=== PATIENT | male | born 1970 | race Caucasian/White ===

== ENCOUNTER → 2017-07-19 | Outpatient (CLI) | payer MEDICAID ==
[2017-07-19 11:20] LABS: Appearance,Urine Clear (Clear); Basophils # (A) 0.1 k/uL (0-0.2); Basophils % (A) 1 %; Bilirubin,Urine Negative (Negative); Blood,Urine Negative (Negative); Color,Urine Yellow; Eosinophils # (A) 0.4 k/uL (0-0.7); Eosinophils % (A) 7 %; Glucose,Urine (UA) Negative (Negative); HCT 44.9 % (39.0-53.0); HGB 15.6 gm/dL (13.0-17.5); Ketones,Urine Negative (Negative); Leukocyte Esterase,Urine Negative (Negative); Lymphocytes # (A) 1.6 k/uL (1.0-4.8); Lymphocytes % (A) 25 %; MCH 30.3 pg (25.0-35.0); MCHC 34.8 g/dL (31.0-37.0); Mean Platelet Volume 6.3; Monocytes # (A) 0.5 k/uL (0-1.0); Monocytes % (A) 8 %; Neutrophils # (A) 3.6 k/uL (1.3-7.7); Neutrophils % (A) 57 %; Nitrite,Urine Negative (Negative); PH, Urine 7.5 (5.0-8.0); Platelet Count 267 k/uL (150-450); Protein,Urine Negative (Negative); RBC 5.16 m/uL (4.30-5.90); RDW 14.1 % (11.5-15.5); Specific Gravity,Urine 1.014 (1.001-1.035); Urobilinogen,Urine <2.0 mg/dL (<2.0); WBC 6.3 k/uL (3.8-10.6)
[2017-07-19 11:32] LABS: ALT 65 U/L (21-72); AST 32 U/L (17-59); Albumin 4.4 g/dL (3.5-5.0); Alkaline Phosphatase 61 U/L (38-126); Anion Gap 13 mmol/L; Blood Urea Nitrogen 14 mg/dL (9-20); Calcium 9.6 mg/dL (8.4-10.2); Carbon Dioxide 24 mmol/L (22-30); Chloride 105 mmol/L (98-107); Cholesterol 216 mg/dL (<200); Creatine Kinase 88 U/L (55-170); Glucose 89 mg/dL (74-99); HDL Cholesterol 51 mg/dL (40-60); LDL Cholesterol,Calculated 140 mg/dL (0-99); Potassium 4.8 mmol/L (3.5-5.1); Sodium 142 mmol/L (137-145); Total Bilirubin 0.7 mg/dL (0.2-1.3); Total Protein 6.7 g/dL (6.3-8.2); Triglycerides 125 mg/dL (<150)
[2017-07-19 11:47] LABS: T4, Free (Free Thyroxine) 1.07 ng/dL (0.78-2.19)
[2017-07-19 12:00] LABS: Prostate Specific Antigen 0.75 ng/mL (0.00-4.00)
[2017-07-19 19:03] LABS: Hemoglobin A1C 5.7 % (4.0-6.0)
== END | disposition home or self-care (01) ==
LOC: LABWHC1 10:22
PROVIDERS: ATTEND Internal Medicine
DX: E55.9 Vitamin D deficiency, unspecified (principal); K21.0 Gastro-esophageal reflux disease with esophagitis; R10.13 Epigastric pain; J45.909 Unspecified asthma, uncomplicated; N40.0 Benign prostatic hyperplasia without lower urinary tract symptoms; R00.1 Bradycardia, unspecified
CPT/HCPCS: 36415; 80053; 80061; 81003; 82306; 82550; 83036; 84153; 84439; 84443; 85025

== ENCOUNTER 2017-09-20 14:58 | Inpatient (IN) | payer MEDICAID ==
[2017-09-20] MEDS ORDERED: SODIUM CHLORIDE 0.9% 500 ML IV STA (14:59)
[2017-09-20] MEDS ORDERED: HYDROmorphone 1 MG/ML 1 ML SYRINGE IVP STA ×2 (14:59→15:45)
[2017-09-20] MEDS ORDERED: KETOROLAC 30 MG/ML 1 ML VIAL IVP STA (14:59)
[2017-09-20] MEDS ORDERED: ONDANSETRON 4 MG/2 ML VIAL IVP STA (14:59)
--- NOTE | 2017-09-20 15:05 | ED ---
General Adult HPI - General Stated complaint: ABDOMINAL PAIN Time Seen by Provider: 09/20/17 15:00 Source: RN notes reviewed - History of Present Illness Initial comments: This is a 47-year-old male who presents emergency Department complaining of sudden onset of right flank pain. Patient states he was at work and the pain came on extremely strong and he thought he was going to vomit but he has not yet. Patient states he is becoming lightheaded and feels as though he might pass out. Patient states he believes is all secondary to the severe pain. Patient denies any chest pain difficulty breathing shortness of breath. Patient denies any recent fever chills. Patient denies any hematuria urinary frequency. - Related Data Home Medications Medication Instructions Recorded Confirmed Atorvastatin [Lipitor] 20 mg PO HS 09/20/17 09/20/17 Cholecalciferol [Vitamin D3] 1,000 unit PO DAILY 09/20/17 09/20/17 Mometasone Furoate [Nasonex Nasal 1 spr EA NOSTRIL BID 09/20/17 09/20/17 Carey] Allergies Allergy/AdvReac Type Severity Reaction Status Date / Time No Known Allergies Allergy Verified 09/20/17 15:22 Review of Systems ROS Statement: Those systems with pertinent positive or pertinent negative responses have been documented in the HPI. ROS Other: All systems not noted in ROS Statement are negative. Past Medical History Past Medical History: Asthma Additional Past Medical History / Comment(s): sinus problems History of Any Multi-Drug Resistant Organisms: None Reported Past Surgical History: Hernia Repair Additional Past Surgical History / Comment(s): sinus surgery Past Anesthesia/Blood Transfusion Reactions: No Reported Reaction Past Psychological History: No Psychological Hx Reported Smoking Status: Never smoker Past Alcohol Use History: Occasional Past Drug Use History: None Reported - Past Family History Brother(s) Family Medical History: Cancer General Exam - General Exam Comments Initial Comments: GENERAL: Patient is well-developed and well-nourished. Patient is nontoxic and well- hydrated and is in moderate to severe distress. ENT: Neck is soft and supple. No significant lymphadenopathy is noted. Oropharynx is clear. Moist mucous membranes. Neck has full range of motion without eliciting any pain. EYES: The sclera were anicteric and conjunctiva were pink and moist. Extraocular movements were intact and pupils were equal round and reactive to light. Eyelids were unremarkable. PULMONARY: Unlabored respirations. Good breath sounds bilaterally. No audible rales rhonchi or wheezing was noted. CARDIOVASCULAR: There is a regular rate and rhythm without any murmurs gallops or rubs. ABDOMEN: Soft and nontender with normal bowel sounds. No palpable organomegaly was noted. There is no palpable pulsatile mass. SKIN: Skin is clear with no lesions or rashes and otherwise unremarkable. NEUROLOGIC: Patient is alert and oriented x3. Cranial nerves II through XII are grossly intact. Motor and sensory are also intact. Normal speech, volume and content. Symmetrical smile. MUSCULOSKELETAL: Normal extremities with adequate strength and full range of motion. LYMPHATICS: No significant lymphadenopathy is noted PSYCHIATRIC: Normal psychiatric evaluation. Course Vital Signs 09/20/17 09/20/17 15:06 17:12 Temperature 97.2 F L 98.1 F Pulse Rate 71 77 Respiratory 24 18 Rate Blood Pressure 134/81 126/75 O2 Sat by Pulse 100 99 Oximetry Medical Decision Making - Medical Decision Making CT shows an edematous small bowel with some distention. I spoke with Dr. Aceves. Dr. Aceves came down and saw the patient emerges. Wanted patient admitted. - Lab Data Result diagrams: 09/20/17 15:03 09/20/17 15:03 Lab Results 09/20/17 09/20/17 09/20/17 Range/Units 15:03 15:03 15:03 WBC 10.0 (3.8-10.6) k/uL RBC 5.30 (4.30-5.90) m/uL Hgb 15.1 (13.0-17.5) gm/dL Hct 45.5 (39.0-53.0) % MCV 85.8 (80.0-100.0) fL MCH 28.4 (25.0-35.0) pg MCHC 33.1 (31.0-37.0) g/dL RDW 13.4 (11.5-15.5) % Plt Count 362 (150-450) k/uL Neutrophils % 55 % Lymphocytes % 32 % Monocytes % 7 % Eosinophils % 2 % Basophils % 1 % Neutrophils # 5.4 (1.3-7.7) k/uL Lymphocytes # 3.2 (1.0-4.8) k/uL Monocytes # 0.7 (0-1.0) k/uL Eosinophils # 0.2 (0-0.7) k/uL Basophils # 0.1 (0-0.2) k/uL ESR (0-15) mm/hr Sodium 140 (137-145) mmol/L Potassium 3.7 (3.5-5.1) mmol/L Chloride 103 (98-107) mmol/L Carbon Dioxide 26 (22-30) mmol/L Anion Gap 11 mmol/L BUN 18 (9-20) mg/dL Creatinine 0.91 (0.66-1.25) mg/dL Est GFR (CKD-EPI)AfAm >90 (>60 ml/min/1.73 sqM) Est GFR (CKD-EPI)NonAf >90 (>60 ml/min/1.73 sqM) Glucose 99 (74-99) mg/dL Plasma Lactic Acid Gurmeet (0.7-2.0) mmol/L Calcium 9.6 (8.4-10.2) mg/dL Total Bilirubin 0.8 (0.2-1.3) mg/dL AST 32 (17-59) U/L ALT 56 (21-72) U/L Alkaline Phosphatase 57 (38-126) U/L C-Reactive Protein <5.0 (<10.0) mg/L Total Protein 6.5 (6.3-8.2) g/dL Albumin 4.5 (3.5-5.0) g/dL Amylase 93 (30-110) U/L Lipase 869 H (23-300) U/L 09/20/17 09/20/17 Range/Units 15:03 16:09 WBC (3.8-10.6) k/uL RBC (4.30-5.90) m/uL Hgb (13.0-17.5) gm/dL Hct (39.0-53.0) % MCV (80.0-100.0) fL MCH (25.0-35.0) pg MCHC (31.0-37.0) g/dL RDW (11.5-15.5) % Plt Count (150-450) k/uL Neutrophils % % Lymphocytes % % Monocytes % % Eosinophils % % Basophils % % Neutrophils # (1.3-7.7) k/uL Lymphocytes # (1.0-4.8) k/uL Monocytes # (0-1.0) k/uL Eosinophils # (0-0.7) k/uL Basophils # (0-0.2) k/uL ESR 2 (0-15) mm/hr Sodium (137-145) mmol/L Potassium (3.5-5.1) mmol/L Chloride (98-107) mmol/L Carbon Dioxide (22-30) mmol/L Anion Gap mmol/L BUN (9-20) mg/dL Creatinine (0.66-1.25) mg/dL Est GFR (CKD-EPI)AfAm (>60 ml/min/1.73 sqM) Est GFR (CKD-EPI)NonAf (>60 ml/min/1.73 sqM) Glucose (74-99) mg/dL Plasma Lactic Acid Gurmeet 1.6 (0.7-2.0) mmol/L Calcium (8.4-10.2) mg/dL Total Bilirubin (0.2-1.3) mg/dL AST (17-59) U/L ALT (21-72) U/L Alkaline Phosphatase (38-126) U/L C-Reactive Protein (<10.0) mg/L Total Protein (6.3-8.2) g/dL Albumin (3.5-5.0) g/dL Amylase (30-110) U/L Lipase (23-300) U/L Disposition Clinical Impression: Small bowel edema, Abdominal pain Disposition: ADMITTED IP TO THIS [facility] Referrals: Jigar Basilio MD [Primary Care Provider] - 1-2 days Time of Disposition: 17:56
[2017-09-20 15:15] LABS: Basophils # (A) 0.1 k/uL (0-0.2); Basophils % (A) 1 %; Eosinophils # (A) 0.2 k/uL (0-0.7); Eosinophils % (A) 2 %; HCT 45.5 % (39.0-53.0); HGB 15.1 gm/dL (13.0-17.5); Lymphocytes # (A) 3.2 k/uL (1.0-4.8); Lymphocytes % (A) 32 %; MCH 28.4 pg (25.0-35.0); MCHC 33.1 g/dL (31.0-37.0); MCV 85.8 fL (80.0-100.0); Mean Platelet Volume 6.4; Monocytes # (A) 0.7 k/uL (0-1.0); Monocytes % (A) 7 %; Neutrophils # (A) 5.4 k/uL (1.3-7.7); Neutrophils % (A) 55 %; Platelet Count 362 k/uL (150-450); RDW 13.4 % (11.5-15.5)
[2017-09-20] MEDS ORDERED: SODIUM CHLORIDE 0.9% 1,000 ML IV STA (15:16)
[2017-09-20 15:24] LABS: ALT 56 U/L (21-72); AST 32 U/L (17-59); Albumin 4.5 g/dL (3.5-5.0); Alkaline Phosphatase 57 U/L (38-126); Amylase 93 U/L (30-110); Anion Gap 11 mmol/L; Blood Urea Nitrogen 18 mg/dL (9-20); Calcium 9.6 mg/dL (8.4-10.2); Carbon Dioxide 26 mmol/L (22-30); Chloride 103 mmol/L (98-107); Glucose 99 mg/dL (74-99); Lipase 869 U/L (23-300); Potassium 3.7 mmol/L (3.5-5.1); Sodium 140 mmol/L (137-145); Total Bilirubin 0.8 mg/dL (0.2-1.3); Total Protein 6.5 g/dL (6.3-8.2)
--- NOTE | 2017-09-20 15:36 | XR ---
EXAMINATION TYPE: XR KUB DATE OF EXAM: 09/20/2017 COMPARISON: NONE HISTORY: Abdominal pain TECHNIQUE: One view abdominal series FINDINGS: The osseous structures are intact. The bowel gas pattern is nonspecific. Lung bases are clear. IMPRESSION: 1. Nonspecific abdomen.
--- NOTE | 2017-09-20 16:05 | CT ---
EXAMINATION TYPE: CT abdomen pelvis wo con DATE OF EXAM: 09/20/2017 COMPARISON: 07/22/2013 HISTORY: 47-year-old male Generalized abdominal pain with nausea. CT DLP: 471.4 mGycm. Automated exposure control for dose reduction was used. TECHNIQUE: Contiguous axial scanning of the abdomen and pelvis without IV contrast. Coronal and sagit joycelyn reconstructions performed. FINDINGS: Heart normal size without pericardial effusion. Lung bases clear without pleural effusion. Small hiatal hernia. Noncontrast appearance of the liver, gallbladder, adrenal glands, kidneys, spleen and pancreas shows no gross abnormal mobility. Diffuse dilated small bowel loops are present measuring up to 3.2 cm. These appear edematous with mil d mesenteric edema and are fluid-filled. Some of the distalmost small bowel loops in the pelvis are c ollapsed. There is mild stool and air seen throughout the colon extending distally into the rectum. A ppendix is normal. No mesenteric or retroperitoneal lymphadenopathy. Ill-defined appearance to the celiac axis incidentally noted, axial image 22 and coronal image 37. Mild to moderate circumferential bladder wall thickening. Prostate gland mildly enlarged at 4.5 cm. N o abnormal fluid collection in the pelvis or pelvic lymphadenopathy. Bones: No osseous destructive process. IMPRESSION: 1. Diffuse dilated and mildly edematous small bowel loops measuring up to 3.2 cm filled with fluid. There is some mild mesenteric edema as well. Some of the distalmost small bowel loops are collapsed. Correlate for possible early small bowel obstruction. 2. Ill-defined appearance to the celiac axis. While this may be artifactual, it can also be seen in the setting of a medium vessel vasculitis. Clinically correlate. 3. Mild to moderate circumferential bladder wall thickening could represent chronic bladder wall hyp ertrophy or cystitis.
[2017-09-20] MEDS ORDERED: MORPHINE SULFATE 2 MG/ML SYRINGE IVP STA (16:08)
--- NOTE | 2017-09-20 16:58 | CT ---
EXAMINATION TYPE: CT abdomen pelvis w con DATE OF EXAM: 09/20/2017 COMPARISON: Noncontrast study earlier today HISTORY: 43-year-old male with generalized abdominal pain. TECHNIQUE: Contiguous axial scanning of the abdomen and pelvis following administration of 100 ml Iso atilio 300 IV contrast. Delayed images through the kidneys and coronal/sagittal reconstructions perform ed. CT DLP: 624.3 mGycm Automated exposure control for dose reduction was used. FINDINGS: Persistent fluid-filled and borderline to mildly dilated small bowel loops throughout the abdomen radha suring up to 3.0 cm. There is persistent diminished change of the small bowel loops with mild mesente vin edema and now needle mild perihepatic and perisplenic ascites. New small amount of pelvic free fl uid also noted. There is interval decompression of the transverse colon and distal small bowel in the right lower oni drant and pelvis remain collapsed. There is equalization of some small bowel loops in the pelvis but no well-defined transition point seen. No mesenteric or retroperitoneal lymphadenopathy. The visceral arteries appear grossly patent without any significant abnormality as questioned on the study earlier today. No abnormal distention of the gallbladder. Appendix is normal. Symmetric uptake and excretion of cont rast from the kidneys. IMPRESSION: 1. PERSISTENT EDEMATOUS AND BORDERLINE TO MILDLY DILATED FLUID-FILLED SMALL BOWEL LOOPS MEASURING UP TO 3.0 CM. THERE IS INTERVAL DECOMPRESSION OF THE TRANSVERSE COLON. DISTAL SMALL BOWEL REMAINS COLLAP SED AND NOW THERE IS SOME FECALIZATION OF SMALL BOWEL LOOPS IN THE PELVIS. DISTAL SMALL BOWEL OBSTRUC TION NOT EXCLUDED. 2. NEW PERIHEPATIC AND PERISPLENIC ASCITES REACTIVE TO THE SMALL BOWEL ABNORMALITY. NO FREE AIR. 3. THE VISCERAL ARTERIES AND PORTAL VENOUS SYSTEM APPEAR GROSSLY UNREMARKABLE.
[2017-09-20] MEDS ORDERED: SODIUM CHLORIDE 0.9% 1,000 ML IV ONE (17:56)
[2017-09-20] MEDS ORDERED: ONDANSETRON 4 MG/2 ML VIAL IVP PRN (18:06)
[2017-09-20] MEDS ORDERED: HYDROmorphone 1 MG/ML 1 ML SYRINGE IVP PRN (18:06)
--- NOTE | 2017-09-20 18:16 | P.GSHP ---
History of Present Illness H&P Date: 09/20/17 Chief Complaint: Abdominal pain Patient was working today when he began experiencing acute onset severe diffuse abdominal pain. Patient went himself down to the emergency department for evaluation. Patient had basic lab work which was normal including CBC lactic acid and amylase however his lipase was elevated. He had a CAT scan without contrast which did not show any definite abnormalities and was then sent back to the CAT scan suite for a contrast study. The films have been reviewed with radiology. There were actually compared to a 2014 contrast study as well. Between the 2 CAT scans the patient developed some free fluid in the upper abdomen. There is some edema of the mesentery. There is no evidence of mesenteric volvulus. There may be some degree of partial small bowel obstruction on films. Patient had a previous inguinal hernia repair and a previous left ureteral surgery through a left lower quadrant incision. Patient' s pain has improved after he was given IV narcotics in the ER. His pain was in excess of 10 out of 10 initially but now is 4 out of 10 and appears relatively comfortable even according to the family. He was seen by cardiovascular surgery earlier who also reviewed his films. Patient is normal sinus rhythm. No hypotension. - Review of Systems Comment: The patient denies any acute changes in vision or hearing, no dysphagia or odynophagia, no chest pain or shortness of breath, no dysuria or hematuria, no headache, no runny nose, no rectal bleeding or melena, no unexplained weight loss Past Medical History Past Medical History: Asthma Additional Past Medical History / Comment(s): sinus problems History of Any Multi-Drug Resistant Organisms: None Reported Past Surgical History: Hernia Repair Additional Past Surgical History / Comment(s): sinus surgery Past Anesthesia/Blood Transfusion Reactions: No Reported Reaction Past Psychological History: No Psychological Hx Reported Smoking Status: Never smoker Past Alcohol Use History: Occasional Past Drug Use History: None Reported - Past Family History Brother(s) Family Medical History: Cancer Medications and Allergies Home Medications Medication Instructions Recorded Confirmed Type Atorvastatin [Lipitor] 20 mg PO HS 09/20/17 09/20/17 History Cholecalciferol [Vitamin D3] 1,000 unit PO DAILY 09/20/17 09/20/17 History Mometasone Furoate [Nasonex Nasal 1 spr EA NOSTRIL BID 09/20/17 09/20/17 History Hanna] Allergies Allergy/AdvReac Type Severity Reaction Status Date / Time No Known Allergies Allergy Verified 09/20/17 15:22 Surgical - Exam Vital Signs Temp Pulse Resp BP Pulse Ox 97.2 F L 71 24 134/81 100 09/20/17 15:06 09/20/17 15:06 09/20/17 15:06 09/20/17 15:06 09/20/17 15:06 Physical exam: General: Well-developed, well-nourished HEENT: Normocephalic, sclerae nonicteric Abdomen: Mild right lower quadrant tenderness, no rebound, no guarding, nondistended Extremities: No edema Neuro: Alert and oriented Results - Labs 09/20/17 15:03 09/20/17 15:03 Abnormal Lab Results - Last 24 Hours (Table) 09/20/17 Range/Units 15: Lipase 869 H (23-300) U/L Diabetes panel 09/20/17 Range/Units 15:03 Sodium 140 (137-145) mmol/L Potassium 3.7 (3.5-5.1) mmol/L Chloride 103 (98-107) mmol/L Carbon Dioxide 26 (22-30) mmol/L BUN 18 (9-20) mg/dL Creatinine 0.91 (0.66-1.25) mg/dL Glucose 99 (74-99) mg/dL Calcium 9.6 (8.4-10.2) mg/dL AST 32 (17-59) U/L ALT 56 (21-72) U/L Alkaline Phosphatase 57 (38-126) U/L Total Protein 6.5 (6.3-8.2) g/dL Albumin 4.5 (3.5-5.0) g/dL Calcium panel 09/20/17 Range/Units 15:03 Calcium 9.6 (8.4-10.2) mg/dL Albumin 4.5 (3.5-5.0) g/dL Pituitary panel 09/20/17 Range/Units 15:03 Sodium 140 (137-145) mmol/L Potassium 3.7 (3.5-5.1) mmol/L Chloride 103 (98-107) mmol/L Carbon Dioxide 26 (22-30) mmol/L BUN 18 (9-20) mg/dL Creatinine 0.91 (0.66-1.25) mg/dL Glucose 99 (74-99) mg/dL Calcium 9.6 (8.4-10.2) mg/dL Adrenal panel 09/20/17 Range/Units 15:03 Sodium 140 (137-145) mmol/L Potassium 3.7 (3.5-5.1) mmol/L Chloride 103 (98-107) mmol/L Carbon Dioxide 26 (22-30) mmol/L BUN 18 (9-20) mg/dL Creatinine 0.91 (0.66-1.25) mg/dL Glucose 99 (74-99) mg/dL Calcium 9.6 (8.4-10.2) mg/dL Total Bilirubin 0.8 (0.2-1.3) mg/dL AST 32 (17-59) U/L ALT 56 (21-72) U/L Alkaline Phosphatase 57 (38-126) U/L Total Protein 6.5 (6.3-8.2) g/dL Albumin 4.5 (3.5-5.0) g/dL Assessment and Plan (1) Abdominal pain Narrative/Plan: Patient with acute onset abdominal pain and CAT scan findings suggesting some degree of enteritis. The history suggests a possible episode of mesenteric ischemia although the patient has responded well to IV hydration and IV analgesics. Clinical history and findings discussed in detail with the patient and his . Given his improvement we'll plan close observation. Repeat labs will be ordered for 9 PM. If the patient's pain increases would consider diagnostic laparoscopy. Case was also reviewed with cardiovascular surgery. Current Visit: Yes Status: Acute Code(s): R10.9 - UNSPECIFIED ABDOMINAL PAIN SNOMED Code(s): 18272858
[2017-09-20] MEDS ORDERED: MORPHINE SULFATE 2 MG/ML SYRINGE IVP PRN (19:09)
[2017-09-20] MEDS ORDERED: ACETAMINOPHEN IV (For NPO) 1,000 MG in EMPTY BAG 1 BAG IVPB STA (19:09)
[2017-09-20 21:15] LABS: Appearance,Urine Clear (Clear); Bilirubin,Urine Negative (Negative); Blood,Urine Negative (Negative); Color,Urine Yellow; Glucose,Urine (UA) Negative (Negative); Ketones,Urine 2+ (Negative); Leukocyte Esterase,Urine Negative (Negative); Nitrite,Urine Negative (Negative); Protein,Urine Trace (Negative); Urobilinogen,Urine <2.0 mg/dL (<2.0)
[2017-09-20 21:56] LABS: Basophils # (A) 0.1 k/uL (0-0.2); Basophils % (A) 1 %; Eosinophils # (A) 0.3 k/uL (0-0.7); Eosinophils % (A) 4 %; HCT 44.3 % (39.0-53.0); HGB 14.6 gm/dL (13.0-17.5); Lymphocytes # (A) 1.4 k/uL (1.0-4.8); Lymphocytes % (A) 15 %; MCH 28.5 pg (25.0-35.0); MCV 86.3 fL (80.0-100.0); Mean Platelet Volume 6.5; Monocytes # (A) 0.5 k/uL (0-1.0); Monocytes % (A) 5 %; Neutrophils # (A) 7.1 k/uL (1.3-7.7); Neutrophils % (A) 75 %; Platelet Count 291 k/uL (150-450); RBC 5.14 m/uL (4.30-5.90); RDW 13.3 % (11.5-15.5); WBC 9.4 k/uL (3.8-10.6)
[2017-09-20 22:05] LABS: Amylase 96 U/L (30-110); Anion Gap 8 mmol/L; Blood Urea Nitrogen 16 mg/dL (9-20); Calcium 8.9 mg/dL (8.4-10.2); Carbon Dioxide 25 mmol/L (22-30); Chloride 106 mmol/L (98-107); Glucose 86 mg/dL (74-99); Lipase 459 U/L (23-300); Potassium 4.3 mmol/L (3.5-5.1); Sodium 139 mmol/L (137-145)
[2017-09-20] MEDS: KETOROLAC 30 MG/ML 1 ML VIAL IVP PRN (22:05)
[2017-09-20] MEDS: HEPARIN SODIUM,PORCINE 5,000 UNIT/ML 1 ML VIAL SQ SCH (22:06)
[2017-09-20] MEDS: FAMOTIDINE 20 MG/2 ML VIAL IV SCH (22:06)
[2017-09-21] MEDS: ACETAMINOPHEN IV (For NPO) 1,000 MG in EMPTY BAG 1 BAG IVPB PRN ×3 (01:55→14:40)
[2017-09-21] MEDS: SODIUM CHLORIDE 0.9% 1,000 ML IV SCH ×4 (04:21→20:56)
[2017-09-21] MEDS: KETOROLAC 30 MG/ML 1 ML VIAL IVP PRN ×3 (04:21→17:04)
[2017-09-21] MEDS: HEPARIN SODIUM,PORCINE 5,000 UNIT/ML 1 ML VIAL SQ SCH ×3 (08:33→23:21)
[2017-09-21 08:42] LABS: Basophils % (A) 1 %; Eosinophils # (A) 0.5 k/uL (0-0.7); Eosinophils % (A) 9 %; HCT 41.4 % (39.0-53.0); HGB 13.8 gm/dL (13.0-17.5); Lymphocytes # (A) 1.3 k/uL (1.0-4.8); Lymphocytes % (A) 25 %; MCH 28.9 pg (25.0-35.0); MCHC 33.4 g/dL (31.0-37.0); MCV 86.4 fL (80.0-100.0); Mean Platelet Volume 6.3; Monocytes # (A) 0.4 k/uL (0-1.0); Monocytes % (A) 7 %; Neutrophils # (A) 2.9 k/uL (1.3-7.7); Neutrophils % (A) 56 %; Platelet Count 291 k/uL (150-450); RDW 13.3 % (11.5-15.5); WBC 5.1 k/uL (3.8-10.6)
[2017-09-21 08:52] LABS: ALT 46 U/L (21-72); AST 24 U/L (17-59); Albumin 3.5 g/dL (3.5-5.0); Alkaline Phosphatase 49 U/L (38-126); Anion Gap 5 mmol/L; Blood Urea Nitrogen 11 mg/dL (9-20); Calcium 8.7 mg/dL (8.4-10.2); Carbon Dioxide 25 mmol/L (22-30); Chloride 109 mmol/L (98-107); Glucose 83 mg/dL (74-99); Potassium 4.5 mmol/L (3.5-5.1); Sodium 139 mmol/L (137-145); Total Protein 5.3 g/dL (6.3-8.2)
[2017-09-21] MEDS: FAMOTIDINE 20 MG/2 ML VIAL IV SCH ×2 (08:52→19:48)
--- NOTE | 2017-09-21 12:13 | P.GSCN ---
History of Present Illness Consult date: 09/21/17 Reason for Consult: Abdominal pain possible mesenteric ischemia Requesting physician: Kirt Aceves History of present illness: Patient was working yesterday when he began experiencing acute onset severe abdominal pain located at the right lower quadrant and right upper quadrant under his rib cage. Patient walked himself down to the emergency department for evaluation where he had lab work and CT scans which showed some edema of the mesentery. Patient was seen by general surgery and upon evaluation and history there was a question to him having had a bout of mesenteric ischemia. Patient's pain has since improved after he was given IV narcotics in the ER as well as hydration. His pain currently is nagging and measured at 4/10. He denies any f/c/cp/sob/n or vomiting. He did have recent hospitalization in [place] for generalized weakness and malaise which he underwent ECHO that was normal. Review of Systems - Constitutional Reports malaise - EENT Ears, nose, mouth and throat: Denies ant. neck pain, Denies bleeding gums, Denies dysphagia, Denies headache - Cardiovascular Denies chest pain, Denies claudication, Denies decreased exercise tolerance, Denies dyspnea on exertion - Respiratory Denies congestion, Denies cough, Denies cough with sputum, Denies dyspnea - Gastrointestinal Reports abdominal pain, Denies belching, Denies bloating, Denies change in bowel habits, Denies coffee ground emesis - Genitourinary Reports flank pain, Denies decreased libido, Denies dysuria, Denies genital pain - Musculoskeletal Reports as per HPI - Integumentary Reports as per HPI - Neurological Denies aphasia, Denies balance difficulties, Denies burning pain, Denies change in mentation, Denies change in speech, Denies double vision, Denies paresthesias - Psychiatric Denies anxiety, Denies anxiety attacks - Endocrine Reports as per HPI - Hematologic/Lymphatic Denies easy bleeding, Denies easy bruising, Denies lymphadenopathy - Allergic/Immunologic Reports as per HPI Past Medical History Past Medical History: Asthma, Hyperlipidemia Additional Past Medical History / Comment(s): sinus problems, recent diagnosis of hyperlipidemia History of Any Multi-Drug Resistant Organisms: None Reported Past Surgical History: Hernia Repair Additional Past Surgical History / Comment(s): sinus surgery Past Anesthesia/Blood Transfusion Reactions: No Reported Reaction Additional Past Anesthesia/Blood Transfusion Reaction / Comm: Pt. reports that he has never had a blood transfusion. Past Psychological History: No Psychological Hx Reported Smoking Status: Never smoker Past Alcohol Use History: Occasional Past Drug Use History: None Reported - Past Family History Brother(s) Family Medical History: Asthma, Cancer Additional Family Medical History / Comment(s): Skin Cancer Father Family Medical History: AFIB, Cancer, Diabetes Mellitus, Hyperlipidemia, Hypertension Additional Family Medical History / Comment(s): Prostate Cancer Mother Additional Family Medical History / Comment(s): Arthritis with knee replacement Medications and Allergies Home Medications Medication Instructions Recorded Confirmed Type Atorvastatin [Lipitor] 20 mg PO HS 09/20/17 09/20/17 History Cholecalciferol [Vitamin D3] 1,000 unit PO DAILY 09/20/17 09/20/17 History Mometasone Furoate [Nasonex Nasal 1 spr EA NOSTRIL BID 09/20/17 09/20/17 History Kenedy] Allergies Allergy/AdvReac Type Severity Reaction Status Date / Time No Known Allergies Allergy Verified 09/20/17 15:22 Surgical - Exam Vital Signs Temp Pulse Resp BP Pulse Ox 97.2 F L 71 24 134/81 100 09/20/17 15:06 09/20/17 15:06 09/20/17 15:06 09/20/17 15:06 09/20/17 15:06 - General well developed, well nourished, no distress - Eyes PERRL, normal ocular movement - ENT normal pinna, normal nares - Neck no masses, trachea midline - Respiratory normal expansion, normal respiratory effort - Cardiovascular Rhythm: regular - Abdomen Abdomen: soft, tender, no masses, no guarding, rebound, no distended Hernia: none - Neurologic normal coordination, normal sensation, no disoriented - Psychiatric oriented to time, oriented to person, oriented to place, speech is normal Results - Labs 09/21/17 08:20 09/21/17 08:20 Abnormal Lab Results - Last 24 Hours (Table) 09/20/17 09/20/17 09/20/17 Range/Units 15:03 21:00 21:40 Chloride (98-107) mmol/L Plasma Lactic Acid Gurmeet (0.7-2.0) mmol/L Total Protein (6.3-8.2) g/dL Lipase 869 H 459 H (23-300) U/L Ur Specific Gilchrist 1.050 H (1.001-1.035) Urine Protein Trace H (Negative) Urine Ketones 2+ H (Negative) 09/20/17 09/21/17 Range/Units 21:40 08:20 Chloride 109 H (98-107) mmol/L Plasma Lactic Acid Gurmeet 0.5 L (0.7-2.0) mmol/L Total Protein 5.3 L (6.3-8.2) g/dL Lipase (23-300) U/L Ur Specific Gilchrist (1.001-1.035) Urine Protein (Negative) Urine Ketones (Negative) Diabetes panel 09/20/17 09/20/17 09/21/17 Range/Units 15:03 21:40 08:20 Sodium 140 139 139 (137-145) mmol/L Potassium 3.7 4.3 4.5 (3.5-5.1) mmol/L Chloride 103 106 109 H (98-107) mmol/L Carbon Dioxide 26 25 25 (22-30) mmol/L BUN 18 16 11 (9-20) mg/dL Creatinine 0.91 0.80 0.83 (0.66-1.25) mg/dL Glucose 99 86 83 (74-99) mg/dL Calcium 9.6 8.9 8.7 (8.4-10.2) mg/dL AST 32 24 (17-59) U/L ALT 56 46 (21-72) U/L Alkaline Phosphatase 57 49 (38-126) U/L Total Protein 6.5 5.3 L (6.3-8.2) g/dL Albumin 4.5 3.5 (3.5-5.0) g/dL Calcium panel 09/20/17 09/20/17 09/21/17 Range/Units 15:03 21:40 08:20 Calcium 9.6 8.9 8.7 (8.4-10.2) mg/dL Albumin 4.5 3.5 (3.5-5.0) g/dL Pituitary panel 09/20/17 09/20/17 09/21/17 Range/Units 15:03 21:40 08:20 Sodium 140 139 139 (137-145) mmol/L Potassium 3.7 4.3 4.5 (3.5-5.1) mmol/L Chloride 103 106 109 H (98-107) mmol/L Carbon Dioxide 26 25 25 (22-30) mmol/L BUN 18 16 11 (9-20) mg/dL Creatinine 0.91 0.80 0.83 (0.66-1.25) mg/dL Glucose 99 86 83 (74-99) mg/dL Calcium 9.6 8.9 8.7 (8.4-10.2) mg/dL Adrenal panel 09/20/17 09/20/17 09/21/17 Range/Units 15:03 21:40 08:20 Sodium 140 139 139 (137-145) mmol/L Potassium 3.7 4.3 4.5 (3.5-5.1) mmol/L Chloride 103 106 109 H (98-107) mmol/L Carbon Dioxide 26 25 25 (22-30) mmol/L BUN 18 16 11 (9-20) mg/dL Creatinine 0.91 0.80 0.83 (0.66-1.25) mg/dL Glucose 99 86 83 (74-99) mg/dL Calcium 9.6 8.9 8.7 (8.4-10.2) mg/dL Total Bilirubin 0.8 1.0 (0.2-1.3) mg/dL AST 32 24 (17-59) U/L ALT 56 46 (21-72) U/L Alkaline Phosphatase 57 49 (38-126) U/L Total Protein 6.5 5.3 L (6.3-8.2) g/dL Albumin 4.5 3.5 (3.5-5.0) g/dL - Imaging CT scan - abdomen: report reviewed, image reviewed (mesenteric edema noted without evidence of vascular disease or occlusion) Assessment and Plan Assessment: Acute Abdominal pain of unknown etiology No evidence of mesenteric ischemia Acute pancreatitis Plan: I reviewed CAT scans and do not see evidence of vascular disease within the mesenteric vasculature. Continue with IV hydration and monitor labs and abdominal exam. If patient gets worse or labs become abnormal then may need formal angiogram to fully workup mesenteric ischemia. We discussed possible causes of pain from embolic ischemia vs spasm which are unlikely secondary to his lack of laboratory changes. No vascular surgical intervention at this time. Thank you for allowing me to participate in your patients care. Time with Patient: Greater than 30
[2017-09-21] MEDS ORDERED: HYDROcodone/APAP 5-325MG 1 EACH TAB PO PRN (14:35)
--- NOTE | 2017-09-21 14:37 | P.PN ---
Subjective Progress Note Date: 09/21/17 Principal diagnosis: Abdominal pain patient says his pain is about a 2 or 3 out of 10. White blood cell count remains normal. No tachycardia. No fevers. Pain is mostly right lower quadrant. Some pain beneath the right costal margin with laughing or deep breaths. Patient has a history of a previous gallbladder polyp that has not been followed up on. Objective - Vital Signs Vital signs: Vital Signs Temp 98.5 F 09/21/17 07:00 Pulse 68 09/21/17 07:00 Resp 18 09/21/17 04:00 BP 126/73 09/21/17 07:00 Pulse Ox 97 09/21/17 07:00 Intake & Output 09/20/17 09/21/17 09/21/17 18:59 06:59 18:59 Output Total 700 Balance -700 Weight 79.379 kg 79.379 kg Output: Urine 700 Other: Voiding Method Toilet - Exam Abdomen: Soft, nondistended, mild right lower quadrant tenderness - Labs CBC & Chem 7: 09/21/17 08:20 09/21/17 08:20 Labs: Abnormal Lab Results - Last 24 Hours (Table) 09/20/17 09/20/17 09/20/17 Range/Units 15:03 21:00 21:40 Chloride (98-107) mmol/L Plasma Lactic Acid [place] (0.7-2.0) mmol/L Total Protein (6.3-8.2) g/dL Lipase 869 H 459 H (23-300) U/L Ur Specific [place] 1.050 H (1.001-1.035) Urine Protein Trace H (Negative) Urine Ketones 2+ H (Negative) 09/20/17 09/21/17 Range/Units 21:40 08:20 Chloride 109 H (98-107) mmol/L Plasma Lactic Acid [place] 0.5 L (0.7-2.0) mmol/L Total Protein 5.3 L (6.3-8.2) g/dL Lipase (23-300) U/L Ur Specific [place] (1.001-1.035) Urine Protein (Negative) Urine Ketones (Negative) Assessment and Plan (1) Abdominal pain Narrative/Plan: Clinically patient improving. Exact etiology for the patient's abdominal pain unclear but presentation and diagnostics suggest transient ischemia. Appreciate vascular input. We'll check abdominal ultrasound as a follow-up to a previously identified all bladder polyp. Gradually advance diet. Hopefully discharge tomorrow. Current Visit: Yes Status: Acute Code(s): R10.9 - UNSPECIFIED ABDOMINAL PAIN SNOMED Code(s): 80259315
[2017-09-21 15:20] VITALS: RESP 16
--- NOTE | 2017-09-21 15:29 | P.CONS ---
History of Present Illness - Reason for Consult Consult date: 09/21/17 Medical management - History of Present Illness This is a 47-year-old male patient of Dr. Basilio with a past medical history of mild intermittent asthma, hyperlipidemia, gallbladder polyp. Patient gives history that he was working yesterday he felt like he had to urinate. And then he developed a cramp to the right side and he went to the bathroom. His pain was mostly in the right middle quadrant. He stood at the urinal to urinate and then the pain became quite intense and he had to sit down on the toilet. It was so bad that he thought he was going to pass out. He then thought if he walked might improve it but it only made his pain worse and he came into [facility] emergency center for evaluation and at that time he was also pale, cold and sweaty. He was afebrile and vital signs were stable. White count was 10, hemoglobin 15.1, electrolytes within normal limits, creatinine 0.91, liver function within normal limits, C-reactive protein less than 5 and sed rate 2. Lactic acid 1.6. Amylase 93 and lipase was elevated at 869. He was given Toradol which did not help his pain, Dilaudid 2-3 doses with no improvement and finally morphine did make his pain go from a 10 to a 3-4. His pain is remained at a 3-[address] of the abdomen and pelvis without contrast was done which revealed diffuse dilated mildly edematous small bowel loops measuring up to 3.2 cm filled with fluid. Mild mesenteric edema as well. Some distal most small bowel loops or collapse. Correlate for possible early small bowel obstruction. Ill-defined appearance to the celiac access could be a medium vessel vasculitis. Mild to moderate bladder wall thickening could represent hypertrophy or cystitis. Patient was seen by Dr. Aceves and admitted to the [facility] floor. He then had a CAT scan of the abdomen and pelvis with contrast that showed persistent edematous and borderline to mildly dilated fluid-filled small bowel loops measuring up to 3 cm. There is interval decompression of the transverse colon. Distal small bowel remains collapsed and now there is some fecalization of the small bowel loops in the pelvis. Distal small bowel obstruction not excluded. New perihepatic and splenic ascites reactive to the small bowel abnormality. No free air. The visceral arteries and portal venous system appears grossly unremarkable. Patient has also been seen by Dr. Locke with no evidence of mesenteric ischemia. We have ordered an RUQ ultrasound. He denies any history of kidney stones and no pain with eating food. A repeat lipase last evening was 459. He remains without leukocytosis. He has been afebrile. Review of Systems All systems: negative Constitutional: Reports sweats, Denies chills, Denies fever, Denies poor appetite Eyes: denies blurred vision, denies pain Ears, nose, mouth and throat: Denies dental pain, Denies headache, Denies mouth pain, Denies sore throat Cardiovascular: Denies chest pain, Denies decreased exercise tolerance, Denies dyspnea on exertion, Denies leg edema, Denies lightheadedness, Denies shortness of breath, Denies syncope Respiratory: Denies congestion, Denies cough, Denies cough with sputum, Denies dyspnea, Denies excessive sputum, Denies hemoptysis, Denies home oxygen, Denies wheezing Gastrointestinal: Reports abdominal pain, Denies diarrhea, Denies nausea, Denies vomiting Genitourinary: Denies dysuria, Denies kidney stones Musculoskeletal: Denies myalgias Integumentary: Denies pruritus, Denies rash Neurological: Denies numbness, Denies weakness Psychiatric: Denies anxiety, Denies depression Endocrine: Denies fatigue, Denies weight change Past Medical History Past Medical History: Asthma, Hyperlipidemia Additional Past Medical History / Comment(s): sinus problems, recent diagnosis of hyperlipidemia History of Any Multi-Drug Resistant Organisms: None Reported Past Surgical History: Hernia Repair Additional Past Surgical History / Comment(s): sinus surgery 3, right testicular varicocele repair 2, left inguinal hernia repair as a child. Past Anesthesia/Blood Transfusion Reactions: No Reported Reaction Additional Past Anesthesia/Blood Transfusion Reaction / Comm: Pt. reports that he has never had a blood transfusion. Past Psychological History: No Psychological Hx Reported Smoking Status: Never smoker Past Alcohol Use History: Occasional Additional Past Alcohol Use History / Comment(s): Visions lifelong nonsmoker. No illicit drug use. Social alcohol intake. Patient was home with his and 2 teenage children. Past Drug Use History: None Reported - Past Family History Brother(s) Family Medical History: Asthma, Cancer Additional Family Medical History / Comment(s): Patient has one brother with basal cell skin cancer, asthma and some type of corneal problem. Patient does not have any sisters. Father Family Medical History: AFIB, Cancer, Diabetes Mellitus, Hyperlipidemia, Hypertension Additional Family Medical History / Comment(s): Father is alive at age 79 with history of atrial fibrillation, diabetes, hypertension, hyperlipidemia, CVA or TIA, and prostate cancer. Mother Additional Family Medical History / Comment(s): Mother is alive at age 76 with history of rheumatoid arthritis and left knee arthroplasty. Daughter(s) Additional Family Medical History / Comment(s): Patient has one daughter with history of atrial septal defect and to ventricular septal defects. Medications and Allergies Home Medications Medication Instructions Recorded Confirmed Type Atorvastatin [Lipitor] 20 mg PO HS 09/20/17 09/20/17 History Cholecalciferol [Vitamin D3] 1,000 unit PO DAILY 09/20/17 09/20/17 History Mometasone Furoate [Nasonex Nasal 1 spr EA NOSTRIL BID 09/20/17 09/20/17 History [place]] Allergies Allergy/AdvReac Type Severity Reaction Status Date / Time No Known Allergies Allergy Verified 09/20/17 15:22 Physical Exam Vitals: Vital Signs Temp Pulse Pulse Resp BP BP Pulse Ox 09/21/17 07:00 98.5 F 68 126/73 97 09/21/17 04:00 63 18 09/21/17 01:57 98 F 63 18 112/66 94 L 09/21/17 00:00 74 16 09/20/17 19:40 98.6 F 74 16 130/79 99 09/20/17 18:18 65 18 129/75 95 09/20/17 17:12 98.1 F 77 18 126/75 99 09/20/17 15:06 97.2 F L 71 24 134/81 100 Intake and Output 09/20/17 09/21/17 09/21/17 22:59 06:59 14:59 Output Total 700 Balance -700 Output: Urine 700 Other: Voiding Method Toilet Toilet Weight 79.379 kg 79.379 kg Gen: This is a 47-year-old male. Patient is resting in bed appears to be comfortable and in no acute distress. HEENT: Head is atraumatic, normocephalic. Pupils equal, round. Sclerae is anicteric. NECK: Supple. No JVD. No lymphadenopathy. No thyromegaly. LUNGS: Clear to auscultation. No wheezes or rhonchi. No intercostal retractions. HEART: Regular rate and rhythm. No murmur. ABDOMEN: Soft. Bowel sounds are present. No masses. Right upper quadrant tenderness. EXTREMITIES: No pedal edema. No calf tenderness. NEUROLOGICAL: Patient is awake, alert and oriented x3. Cranial nerves 2 through 12 are grossly intact. Results CBC & Chem 7: 09/21/17 08:20 09/21/17 08:20 Labs: Abnormal Lab Results - Last 24 Hours (Table) 09/20/17 09/20/17 09/20/17 Range/Units 15:03 21:00 21:40 Chloride (98-107) mmol/L Plasma Lactic Acid Gurmeet (0.7-2.0) mmol/L Total Protein (6.3-8.2) g/dL Lipase 869 H 459 H (23-300) U/L Ur Specific [place] 1.050 H (1.001-1.035) Urine Protein Trace H (Negative) Urine Ketones 2+ H (Negative) 09/20/17 09/21/17 Range/Units 21:40 08:20 Chloride 109 H (98-107) mmol/L Plasma Lactic Acid [place] 0.5 L (0.7-2.0) mmol/L Total Protein 5.3 L (6.3-8.2) g/dL Lipase (23-300) U/L Ur Specific [place] (1.001-1.035) Urine Protein (Negative) Urine Ketones (Negative) Assessment and Plan Plan: 1. Right middle and right upper abdominal pain secondary to possible transit ischemia presenting with elevated lipase. Continue current pain management with morphine or Toradol and Zofran for nausea. Abdominal ultrasound has been ordered as patient has a known gallbladder polyp. Consult with Dr. Locke. Diet is full liquids for tonight. 2. Hyperlipidemia. Continue Lipitor 20 mg at bedtime once patient is eating. 3. Chronic sinus problems. Continue Nasonex spray. 4. DVT prophylaxis. Heparin subcu. 5. GI prophylaxis. Pepcid. Patient will be admitted to the hospital for a minimum of 2 night stay. Discharge plan: He turned home Impression and plan of care have been directed as dictated by the signing physician. Kenia Harris nurse practitioner acting as scribe for signing physician.
--- NOTE | 2017-09-21 16:47 | US ---
EXAMINATION TYPE: US abdomen limited DATE OF EXAM: 09/21/2017 COMPARISON: NONE CLINICAL HISTORY: RUQ pain, GB polyp. NPO EXAM MEASUREMENTS: Liver Length: 15.7 cm Gallbladder Wall: 0.1 cm CBD: 0.3 cm CHD: 0.2 cm Right Kidney: 10.8 x 5.1 x 5.1 cm Pancreas: Head and tail not well visualized due to overlying bowel gas. Echogenic. Limited visuali zation. Liver: Appears wnl, portions scanned intercostally due to overlying bowel gas. Gallbladder: Polyp = 0.2 cm Evidence for sonographic Reis's sign: neg CBD: wnl CHD: wnl Right Kidney: wnl Free fluid seen adjacent to liver IMPRESSION: There is a 2 mm polyp or adherent nonshadowing stone in the gallbladder. No dilated ducts . No discrete liver mass. Minimal free fluid. Fluid is of uncertain significance.
[2017-09-21] MEDS: FLUTICASONE 50MCG/SPRAY NASAL 16GM EA NOSTRIL SCH (17:20)
[2017-09-21] MEDS ORDERED: VERAPAMIL 40 MG TAB PO SCH (21:00)
[2017-09-22] MEDS: SODIUM CHLORIDE 0.9% 1,000 ML IV SCH ×2 (05:38→10:28)
[2017-09-22] MEDS: KETOROLAC 30 MG/ML 1 ML VIAL IVP PRN ×2 (06:03→12:18)
[2017-09-22 07:59] VITALS: BP 129/86; PULSE 56; TEMP 97.1
[2017-09-22] MEDS: FAMOTIDINE 20 MG/2 ML VIAL IV SCH (08:58)
[2017-09-22] MEDS: HEPARIN SODIUM,PORCINE 5,000 UNIT/ML 1 ML VIAL SQ SCH (08:58)
--- NOTE | 2017-09-22 10:27 | P.DS ---
Providers Date of admission: 09/20/17 17:56 Expected date of discharge: 09/22/17 Attending physician: Kirt Aceves Consults: 09/20/17 17:56 Consult Physician Urgent Consulting Provider: Kristin Lanza Consult Reason/Comments: Medical management Do you want consulting provider notified?: Yes 09/21/17 09:26 Consult Physician Routine Consulting Provider: Emil Locke Consult Reason/Comments: mesenteric eval Do you want consulting provider notified?: Already Contacted Primary care physician: Jigar Basilio - Discharge Diagnosis(es) (1) Abdominal pain Please refer to hospital chart for full details. Patient admitted with acute onset abdominal pain. Pain thankfully improved fairly shortly after ER evaluation. CAT scan findings and history suggest possible transient bowel ischemia. Etiology unclear. Has been seen by internal medicine and vascular surgery on consultation. Started on a low-dose calcium channel mercedez to help with possible arterial spasm. Doing better today. Will be discharged. Patient will follow up with his primary care physician shortly after discharge. Prescription for Norvasc provided. Current Visit: Yes Status: Acute Plan - Discharge Summary Discharge Rx Participant: No New Discharge Prescriptions: No Action Mometasone Furoate [Nasonex Nasal [place]] 1 spr EA NOSTRIL BID Cholecalciferol [Vitamin D3] 1,000 unit PO DAILY Atorvastatin [Lipitor] 20 mg PO HS Discharge Medication List Atorvastatin [Lipitor] 20 mg PO HS 09/20/17 [History] Cholecalciferol [Vitamin D3] 1,000 unit PO DAILY 09/20/17 [History] Mometasone Furoate [Nasonex Nasal [place]] 1 spr EA NOSTRIL BID 09/20/17 [History] Follow up Appointment(s)/Referral(s): Jigar Basilio MD [Primary Care Provider] - 1-2 days
[2017-09-22] MEDS: FLUTICASONE 50MCG/SPRAY NASAL 16GM EA NOSTRIL SCH (10:28)
== END 2017-09-22 13:16 | disposition home or self-care (01) | DRG 393 ==
LOC: EC 14:58 → 3SUR 17:56
PROVIDERS: ADMIT Surgery; ATTEND Surgery
DX: K55.019 Acute (reversible) ischemia of small intestine, extent unspecified (principal); K85.90 Acute pancreatitis without necrosis or infection, unspecified; K56.690 Other partial intestinal obstruction; R18.8 Other ascites; Z82.61 Family history of arthritis; E78.5 Hyperlipidemia, unspecified; J45.20 Mild intermittent asthma, uncomplicated; Z79.899 Other long term (current) drug therapy; Z80.42 Family history of malignant neoplasm of prostate; Z80.8 Family history of malignant neoplasm of other organs or systems; Z82.3 Family history of stroke; Z82.49 Family history of ischemic heart disease and other diseases of the circulatory system; Z82.5 Family history of asthma and other chronic lower respiratory diseases; Z83.3 Family history of diabetes mellitus
CPT/HCPCS: 36415; 74018; 74176; 74177; 76705; 80048; 80053; 81003; 82150; 83605; 83690; 85025; 85652; 86140; 96361; 96374; 96375; 96376; 99285

== ENCOUNTER 2017-09-25 03:49 | Observation (INO) | payer MEDICAID ==
[2017-09-25] MEDS ORDERED: MORPHINE SULFATE 4 MG/ML SYRINGE IV STA ×2 (04:22→04:47)
[2017-09-25 04:35] LABS: Basophils # (A) 0.1 k/uL (0-0.2); Basophils % (A) 1 %; Eosinophils # (A) 0.4 k/uL (0-0.7); Eosinophils % (A) 5 %; HCT 49.3 % (39.0-53.0); HGB 16.4 gm/dL (13.0-17.5); Lymphocytes # (A) 2.5 k/uL (1.0-4.8); Lymphocytes % (A) 35 %; MCH 28.2 pg (25.0-35.0); MCHC 33.2 g/dL (31.0-37.0); MCV 84.9 fL (80.0-100.0); Mean Platelet Volume 6.4; Monocytes # (A) 0.5 k/uL (0-1.0); Monocytes % (A) 7 %; Neutrophils # (A) 3.6 k/uL (1.3-7.7); Neutrophils % (A) 50 %; Platelet Count 349 k/uL (150-450); RBC 5.81 m/uL (4.30-5.90); RDW 13.3 % (11.5-15.5); WBC 7.2 k/uL (3.8-10.6)
--- NOTE | 2017-09-25 04:36 | ED ---
Abdominal Pain HPI - General Chief Complaint: Abdominal Pain Stated Complaint: abd pain Time Seen by Provider: 09/25/17 04:12 Source: patient Mode of arrival: ambulatory Limitations: no limitations - History of Present Illness Initial Comments: This patient is a 47-year-old man who presents to be evaluated for diffuse abdominal pain. Pain woke him from sleep approximately an hour before arriving. The patient states that the pains diffuse, severe, and he describes the sensation as being "like I need to take a massive bowel movement." He has not noted any worsening or relieving factors. No accompanying symptoms. Patient had similar episode and had been admitted into the hospital on September 21. He did have a CAT scan at that time and is question whether he was having some ischemic bowel. He did have subsequent CAT scan that did not show any evidence of bowel ischemia. His symptoms did resolve and he was able to go home. MD Complaint: abdominal pain Onset/Timin -: hour(s) Location: diffuse Radiation: none Migration to: no migration Severity: severe Quality: cramping Consistency: constant Improves With: nothing Worsens With: nothing Associated Symptoms: denies other symptoms - Related Data Home Medications Medication Instructions Recorded Confirmed Atorvastatin [Lipitor] 20 mg PO HS 09/20/17 09/20/17 Cholecalciferol [Vitamin D3] 1,000 unit PO DAILY 09/20/17 09/20/17 Mometasone Furoate [Nasonex Nasal 1 spr EA NOSTRIL BID 09/20/17 09/20/17 [place]] Allergies Allergy/AdvReac Type Severity Reaction Status Date / Time No Known Allergies Allergy Verified 09/25/17 03:53 Review of Systems ROS Statement: Those systems with pertinent positive or pertinent negative responses have been documented in the HPI. ROS Other: All systems not noted in ROS Statement are negative. Constitutional: Denies: fever, chills, weakness Respiratory: Denies: cough, dyspnea Cardiovascular: Denies: chest pain, palpitations Gastrointestinal: Reports: abdominal pain, nausea. Denies: vomiting, diarrhea, constipation, melena, hematochezia Genitourinary: Denies: dysuria, hematuria Musculoskeletal: Denies: back pain Skin: Denies: rash Neurological: Denies: headache Past Medical History Past Medical History: Asthma, Hyperlipidemia Additional Past Medical History / Comment(s): sinus problems, recent diagnosis of hyperlipidemia History of Any Multi-Drug Resistant Organisms: None Reported Past Surgical History: Hernia Repair Additional Past Surgical History / Comment(s): sinus surgery 3, right testicular varicocele repair 2, left inguinal hernia repair as a child. Past Anesthesia/Blood Transfusion Reactions: No Reported Reaction Additional Past Anesthesia/Blood Transfusion Reaction / Comment(s): Pt. reports that he has never had a blood transfusion. Past Psychological History: No Psychological Hx Reported Smoking Status: Never smoker Past Alcohol Use History: Occasional Past Drug Use History: None Reported - Past Family History Brother(s) Family Medical History: Asthma, Cancer Additional Family Medical History / Comment(s): Patient has one brother with basal cell skin cancer, asthma and some type of corneal problem. Patient does not have any sisters. Father Family Medical History: AFIB, Cancer, Diabetes Mellitus, Hyperlipidemia, Hypertension Additional Family Medical History / Comment(s): Father is alive at age 79 with history of atrial fibrillation, diabetes, hypertension, hyperlipidemia, CVA or TIA, and prostate cancer. Mother Additional Family Medical History / Comment(s): Mother is alive at age 76 with history of rheumatoid arthritis and left knee arthroplasty. Daughter(s) Additional Family Medical History / Comment(s): Patient has one daughter with history of atrial septal defect and to ventricular septal defects. General Exam Limitations: no limitations General appearance: alert, in distress Head exam: Present: atraumatic, normocephalic Eye exam: Present: normal appearance Respiratory exam: Present: normal lung sounds bilaterally. Absent: respiratory distress, wheezes, rales, rhonchi, stridor Cardiovascular Exam: Present: regular rate, normal rhythm, normal heart sounds. Absent: systolic murmur, diastolic murmur, rubs, gallop GI/Abdominal exam: Present: soft. Absent: distended, tenderness, guarding, rebound, rigid, mass, pulsatile mass, hernia Extremities exam: Present: normal inspection, normal capillary refill. Absent: pedal edema, calf tenderness Neurological exam: Present: alert Skin exam: Present: warm, dry, intact, normal color. Absent: rash Course Vital Signs 09/25/17 03:51 Temperature 97.8 F Pulse Rate 100 Respiratory 32 H Rate Blood Pressure 117/83 O2 Sat by Pulse 98 Oximetry Disposition Referrals: Jigar Basilio MD [Primary Care Provider] - 1-2 days
[2017-09-25 04:42] LABS: ALT 371 U/L (21-72); AST 253 U/L (17-59); Albumin 4.7 g/dL (3.5-5.0); Alkaline Phosphatase 72 U/L (38-126); Amylase 87 U/L (30-110); Anion Gap 12 mmol/L; Blood Urea Nitrogen 10 mg/dL (9-20); Calcium 10.3 mg/dL (8.4-10.2); Carbon Dioxide 24 mmol/L (22-30); Chloride 102 mmol/L (98-107); Glucose 130 mg/dL (74-99); Lipase 660 U/L (23-300); Potassium 3.9 mmol/L (3.5-5.1); Sodium 138 mmol/L (137-145); Total Protein 6.9 g/dL (6.3-8.2)
[2017-09-25] MEDS ORDERED: ONDANSETRON 4 MG/2 ML VIAL IVP STA (04:47)
--- NOTE | 2017-09-25 05:18 | XR ---
Abdomen 2 views. History abdominal pain. Comparison 09-20-17. Technique 2 supine views. FINDINGS: There is no sign of intestinal obstruction or pneumoperitoneum. Fecal pattern is normal. There is no evidence of a mass. There are no pathologic calcifications over the kidneys. Lung bases are clear. IMPRESSION: Nonacute abdomen. No change.
[2017-09-25] MEDS ORDERED: HYDROmorphone 1 MG/ML 1 ML SYRINGE IVP STA ×2 (05:19→06:17)
[2017-09-25] MEDS ORDERED: KETOROLAC 30 MG/ML 1 ML VIAL IVP STA (05:49)
--- NOTE | 2017-09-25 07:26 | CT ---
EXAMINATION TYPE: CT angio abdomen pelvis DATE OF EXAM: 09/25/2017 7:06 AM COMPARISON: None HISTORY: Pain CT DLP: 1461 mGycm Automated exposure control for dose reduction was used. TECHNIQUE: Performed without and with IV Contrast, patient injected with 100 mL of Isovue 370. There are 3-D post processed images.. FINDINGS: The lung bases are clear. There is no pleural effusion. Heart size is normal. There is no pericardial effusion. Liver spleen pancreas gallbladder appear normal. Bile ducts are not dilated. There is norm al contrast opacification of the kidneys. There is no hydronephrosis. There is no adrenal mass. There is no intestinal wall thickening. There are no dilated loops. There is no ascites. There is no sign of free air. Bladder distends smoothly. Abdominal aorta has normal size and contour. There is wide patency of the celiac artery and superior mesenteric artery. There is bilateral wide patency of the renal arteries. There is very minimal ather osclerotic calcification. There is wide patency of the common internal and external iliac arteries. T here is bilateral patency of the proximal femoral arteries. There is no evidence of abdominal aortic aneurysm or dissection. The bony structures are intact. IMPRESSION: NEGATIVE CT ANGIOGRAM OF THE ABDOMEN AND PELVIS. NO EVIDENCE OF ABDOMINAL AORTIC ANEURYSM OR DISSECTI ON.
--- NOTE | 2017-09-25 07:54 | P.GSHP ---
History of Present Illness H&P Date: 09/25/17 Chief Complaint: Abdominal pain 47-year-old male known to our service. He was hospitalized over the weekend with acute onset abdominal pain. At the time the patient's pain was initially diffuse but seems localized more to the right side of the abdomen. This gradually improved and was left with a mild crampy discomfort in the right lower quadrant. He was seen during his last hospitalization by vascular surgery as well given the clinical suspicion on presentation of possible mesenteric ischemia. He was discharged home on [place]. He said that over the last 2 days he had been feeling better. Some very mild right mid abdominal discomfort at times. 3:30 this morning he awoke from sleep with severe pain once again. Pain is diffuse in nature although slightly more on the right midabdominal location. Patient was described by the ER staff is being inconsolable. Pain was 10 out of 10. His abdominal examination was benign. White blood cell count was normal. Lactic acid was 1.5. ALT and AST both elevated. Bilirubin and alkaline phosphatase normal. During his past hospitalization ultrasound of the abdomen showed a 2 mm adherent stone or polyp. He had a history of previous gallbladder polyp in the past. Denies any change in the color of his skin urine or stool. Had 1 episode of emesis. This was nonbloody. Stools have been relatively normal although he did notice some mucus at times. Prior to these 2 episodes he never had attacks of pain like this before. When comparing his CAT scan today to the CAT scan performed 2 days ago there is less free fluid there is less generalized inflammatory change or edema in the mesentery. Specifically gallbladder kidney and liver appear normal. CAT scan dictation reads normal. Venous system not well visualized. - Review of Systems Comment: The patient denies any acute changes in vision or hearing, no dysphagia or odynophagia, no chest pain or shortness of breath, no dysuria or hematuria, no headache, no runny nose, no rectal bleeding or melena, no unexplained weight loss Past Medical History Past Medical History: Asthma, Hyperlipidemia Additional Past Medical History / Comment(s): sinus problems, recent diagnosis of hyperlipidemia History of Any Multi-Drug Resistant Organisms: None Reported Past Surgical History: Hernia Repair Additional Past Surgical History / Comment(s): sinus surgery 3, right testicular varicocele repair 2, left inguinal hernia repair as a child. Past Anesthesia/Blood Transfusion Reactions: No Reported Reaction Additional Past Anesthesia/Blood Transfusion Reaction / Comment(s): Pt. reports that he has never had a blood transfusion. Past Psychological History: No Psychological Hx Reported Smoking Status: Never smoker Past Alcohol Use History: Occasional Past Drug Use History: None Reported - Past Family History Brother(s) Family Medical History: Asthma, Cancer Additional Family Medical History / Comment(s): Patient has one brother with basal cell skin cancer, asthma and some type of corneal problem. Patient does not have any sisters. Father Family Medical History: AFIB, Cancer, Diabetes Mellitus, Hyperlipidemia, Hypertension Additional Family Medical History / Comment(s): Father is alive at age 79 with history of atrial fibrillation, diabetes, hypertension, hyperlipidemia, CVA or TIA, and prostate cancer. Mother Additional Family Medical History / Comment(s): Mother is alive at age 76 with history of rheumatoid arthritis and left knee arthroplasty. Daughter(s) Additional Family Medical History / Comment(s): Patient has one daughter with history of atrial septal defect and to ventricular septal defects. Medications and Allergies Home Medications Medication Instructions Recorded Confirmed Type Atorvastatin [Lipitor] 20 mg PO HS 09/20/17 09/25/17 History Mometasone Furoate [Nasonex Nasal 1 spr EA NOSTRIL BID 09/20/17 09/25/17 History [place]] Aspirin EC [Ecotrin Low Dose] 81 mg PO DAILY 09/25/17 09/25/17 History Fluticasone/Vilanterol [Breo 1 puff INHALATION RT-DAILY 09/25/17 09/25/17 History Ellipta 100-25 Mcg Inhaler] amLODIPine [Norvasc] 2.5 mg PO DAILY 09/25/17 09/25/17 History Allergies Allergy/AdvReac Type Severity Reaction Status Date / Time No Known Allergies Allergy Verified 09/25/17 07:30 Surgical - Exam Vital Signs Temp Pulse Resp BP Pulse Ox 97.8 F 100 32 H 117/83 98 09/25/17 03:51 09/25/17 03:51 09/25/17 03:51 09/25/17 03:51 09/25/17 03:51 Physical exam: General: Well-developed, well-nourished HEENT: Normocephalic, sclerae nonicteric Abdomen: Mild right mid abdominal tenderness, nondistended Extremities: No edema Neuro: Alert and oriented Results - Labs 09/25/17 04:19 09/25/17 04:19 Abnormal Lab Results - Last 24 Hours (Table) 09/25/17 Range/Units 04:19 Glucose 130 H (74-99) mg/dL Calcium 10.3 H (8.4-10.2) mg/dL AST 253 H (17-59) U/L ALT 371 H (21-72) U/L Lipase 660 H (23-300) U/L Diabetes panel 09/25/17 Range/Units 04:19 Sodium 138 (137-145) mmol/L Potassium 3.9 (3.5-5.1) mmol/L Chloride 102 (98-107) mmol/L Carbon Dioxide 24 (22-30) mmol/L BUN 10 (9-20) mg/dL Creatinine 1.04 (0.66-1.25) mg/dL Glucose 130 H (74-99) mg/dL Calcium 10.3 H (8.4-10.2) mg/dL AST 253 H (17-59) U/L ALT 371 H (21-72) U/L Alkaline Phosphatase 72 (38-126) U/L Total Protein 6.9 (6.3-8.2) g/dL Albumin 4.7 (3.5-5.0) g/dL Calcium panel 09/25/17 Range/Units 04:19 Calcium 10.3 H (8.4-10.2) mg/dL Albumin 4.7 (3.5-5.0) g/dL Pituitary panel 09/25/17 Range/Units 04:19 Sodium 138 (137-145) mmol/L Potassium 3.9 (3.5-5.1) mmol/L Chloride 102 (98-107) mmol/L Carbon Dioxide 24 (22-30) mmol/L BUN 10 (9-20) mg/dL Creatinine 1.04 (0.66-1.25) mg/dL Glucose 130 H (74-99) mg/dL Calcium 10.3 H (8.4-10.2) mg/dL Adrenal panel 09/25/17 Range/Units 04:19 Sodium 138 (137-145) mmol/L Potassium 3.9 (3.5-5.1) mmol/L Chloride 102 (98-107) mmol/L Carbon Dioxide 24 (22-30) mmol/L BUN 10 (9-20) mg/dL Creatinine 1.04 (0.66-1.25) mg/dL Glucose 130 H (74-99) mg/dL Calcium 10.3 H (8.4-10.2) mg/dL Total Bilirubin 1.0 (0.2-1.3) mg/dL AST 253 H (17-59) U/L ALT 371 H (21-72) U/L Alkaline Phosphatase 72 (38-126) U/L Total Protein 6.9 (6.3-8.2) g/dL Albumin 4.7 (3.5-5.0) g/dL Assessment and Plan (1) Abdominal pain Narrative/Plan: Patient with recurrent episode of abdominal pain. Patient's transaminases are elevated at this time. Possibility of choledocholithiasis must be considered. We'll consult GI for further evaluation. We'll review the CAT scan with radiology to evaluate the mesenteric venous system. Current Visit: No Status: Acute Code(s): R10.9 - UNSPECIFIED ABDOMINAL PAIN SNOMED Code(s): 26739005
[2017-09-25] MEDS ORDERED: ACETAMINOPHEN IV (For NPO) 1,000 MG in EMPTY BAG 1 BAG IVPB ONE (07:55)
[2017-09-25] MEDS ORDERED: MAGNESIUM HYDROXIDE 2,400 MG/10 ML CUP PO PRN ×2 (11:09)
[2017-09-25] MEDS: SODIUM CHLORIDE 0.9% 1,000 ML IV SCH ×2 (11:17→20:36)
[2017-09-25] MEDS: FAMOTIDINE 20 MG TAB PO SCH ×2 (11:19→20:33)
[2017-09-25] MEDS: HEPARIN SODIUM,PORCINE 5,000 UNIT/ML 1 ML VIAL SQ SCH ×2 (11:20→19:08)
--- NOTE | 2017-09-25 11:42 | P.CONS ---
History of Present Illness - Reason for Consult Consult date: 09/25/17 Transaminitis Requesting physician: Kirt Aceves - History of Present Illness 47-year-old gentleman patient of Dr. Garcia with a past medical history gallbladder polyp, asthma, hyperlipidemia admitted with acute abdominal pain without syncope, fever chills diarrhea hematemesis hematochezia or melena. Last patient had an episode of sudden onset of intense diffuse abdominal pain with nausea preceded by the urge to urinate. Computed tomography scan abdomen and pelvis without contrast reported an edematous small bowel with mild dilation and mesenteric edema with ill-defined celiac axis. Repeat computed tomography scan 1 hour later with contrast redemonstrated previous findings but new-onset of perihepatic/splenic ascites. Visceral arteries and portal venous system unremarkable. 09/20/17 lactic acid ESR CRP CMP CBC amylase were within normal limits. Lipase elevated 869 decreased to 459. Lactic acid normal. He was evaluated by general surgery and CV with plans to proceed nonsurgically. He has no history of this type of pain. Colonoscopy screening in 2016 unremarkable. He was observed for a few days placed on Norvasc and discharged on Sunday. Over the weekend abdominal pain seemed to improve but concentrated more on the right lower right midquadrant region. Yesterday he developed increased cramping to the lower right abdomen. He made attempts to stay hydrated ate a few light meals with persistence of pain. Change in bowel habits over the last 5 days more constipated feeling normally has 1-2 easy BMs daily but is now passing hard pellet like bowel movements; once Sunday and again yesterday. Early this morning the pain was so severe he presented himself back to the emergency room for further evaluation. CTA with contrast was unremarkable. CBC BUN/creatinine lactic acid normal. White count 7.2. Hemoglobin 16.4. Platelet 349. BUN 10. Creatinine 1.0. Lipase 660. Amylase normal. Increased transaminases AST 253. ALT 371. AP 72. Total bilirubin 1.0. Vital signs reviewed no episodes of hypotension. Ultrasound abdomen normal CBD 2 mm gallbladder polyp or stone. He was placed on Norvasc last week otherwise no other new medications. He does take Lipitor but has not taken it recently. No alcohol. Additionally 7-8 months ago he had an episode of persistent lightheadedness dizziness was evaluated at the [facility]. He reports an echocardiogram EKG was performed and verbally told it was within normal limits. He's had no further episodes of dizziness lightheadedness since then. No history of arrhythmias palpitations or cardiac history. Review of Systems Constitutional: Denies fever, chills, sweats, weight gain, or loss. HEENT: Negative for migraines, blurred vision or loss, earaches, drainage, tinnitus, oral mucosal lesions, dysphagia, or odynophagia. Cardiac: Negative for chest pain, arrhythmias, or palpitation. Respiratory: Negative for shortness of breath, hemoptysis, cough, or sputum production. Gastrointestinal: See HPI for pertinent findings. Genitourinary: Negative for hematuria, urgency, frequency, polyuria, dysuria, or penile discharge. Musculoskeletal: Negative for muscle aches, swelling, arthritis, and arthralgias. Neurologic: Negative for stroke or TIA. Endocrine: Negative for thyroid problems. Skin: Negative for rash or itching. Psychiatric: Negative history for depression and anxiety Past Medical History Past Medical History: Asthma, Hyperlipidemia Additional Past Medical History / Comment(s): sinus problems, recent diagnosis of hyperlipidemia History of Any Multi-Drug Resistant Organisms: None Reported Past Surgical History: Hernia Repair Additional Past Surgical History / Comment(s): sinus surgery 3, right testicular varicocele repair 2, left inguinal hernia repair as a child. Past Anesthesia/Blood Transfusion Reactions: No Reported Reaction Additional Past Anesthesia/Blood Transfusion Reaction / Comm: Pt. reports that he has never had a blood transfusion. Past Psychological History: No Psychological Hx Reported Smoking Status: Never smoker Past Alcohol Use History: Occasional Past Drug Use History: None Reported - Past Family History Brother(s) Family Medical History: Asthma, Cancer Additional Family Medical History / Comment(s): Patient has one brother with basal cell skin cancer, asthma and some type of corneal problem. Patient does not have any sisters. Father Family Medical History: AFIB, Cancer, Diabetes Mellitus, Hyperlipidemia, Hypertension Additional Family Medical History / Comment(s): Father is alive at age 79 with history of atrial fibrillation, diabetes, hypertension, hyperlipidemia, CVA or TIA, and prostate cancer. Mother Additional Family Medical History / Comment(s): Mother is alive at age 76 with history of rheumatoid arthritis and left knee arthroplasty. Daughter(s) Additional Family Medical History / Comment(s): Patient has one daughter with history of atrial septal defect and to ventricular septal defects. Medications and Allergies Home Medications Medication Instructions Recorded Confirmed Type Atorvastatin [Lipitor] 20 mg PO HS 09/20/17 09/25/17 History Mometasone Furoate [Nasonex Nasal 1 spr EA NOSTRIL BID 09/20/17 09/25/17 History [place]] Aspirin EC [Ecotrin Low Dose] 81 mg PO DAILY 09/25/17 09/25/17 History Fluticasone/Vilanterol [Breo 1 puff INHALATION RT-DAILY 09/25/17 09/25/17 History Ellipta 100-25 Mcg Inhaler] amLODIPine [Norvasc] 2.5 mg PO DAILY 09/25/17 09/25/17 History Allergies Allergy/AdvReac Type Severity Reaction Status Date / Time No Known Allergies Allergy Verified 09/25/17 07:30 Physical Exam Vitals: Vital Signs Temp Pulse Resp BP Pulse Ox 09/25/17 03:51 97.8 F 100 32 H 117/83 98 Intake and Output 09/24/17 09/25/17 09/25/17 22:59 06:59 14:59 Other: Weight 79.379 kg General appearance: The patient is alert, oriented, in no acute distress. HET: Head is normocephalic and atraumatic. Pupils are equal and reactive. Oropharynx is clear without lesions. Neck: Supple without lymphadenopathy. Trachea midline. Heart: S1 S2. Regular rate and rhythm. Lungs: No crackles or wheezes are heard. Abdomen: Soft, moderate tenderness to the right midquadrant right lower quadrant extending slightly into the flank region without peritoneal signs. No palpable organomegaly or masses. Extremities: Normal skin color and turgor. No cyanosis, rash, ulceration, clubbing, or edema. Radial and pedal pulses are 2/4 bilaterally. Neurological: No focal deficits. Strength and sensation are grossly intact. Results CBC & Chem 7: 09/25/17 04:19 09/25/17 04:19 Labs: Abnormal Lab Results - Last 24 Hours (Table) 09/25/17 Range/Units 04:19 Glucose 130 H (74-99) mg/dL Calcium 10.3 H (8.4-10.2) mg/dL AST 253 H (17-59) U/L ALT 371 H (21-72) U/L Lipase 660 H (23-300) U/L CT scan - abdomen: report reviewed (Dr. Garcia reviewed all CT reports US since ) Assessment and Plan (1) Abdominal pain Narrative/Plan: 47-year-old gentleman admitted twice in the last 5 days with recurrent sudden onset of intense diffuse right sided abdominal pain passing pellet like hard stool with previous CT imaging reporting small bowel edema perihepatic splenic ascites without obvious caus. New onset of transaminitis with repeat abdominal CT reporting negative findings, ultrasound abdomen reported 2 mm gallbladder polyp possible stone with normal CBD raises possibility of choledocholithiasis. Current Visit: No Status: Acute Code(s): R10.9 - UNSPECIFIED ABDOMINAL PAIN SNOMED Code(s): 89268632 (2) Transaminitis Current Visit: Yes Status: Acute Code(s): R74.0 - NONSPEC ELEV OF LEVELS OF TRANSAMNS & LACTIC ACID DEHYDRGNSE SNOMED Code(s): 168995869 Plan: 1. MRCP. CMP in a.m. Hepatitis screen requested. General surgery following. 2. Normal saline 125 mL an hour. Nothing by mouth except medications ice chips popsicles. We'll defer diet advancement to attending service. 3. Continue GI prophylaxis. Hold Lipitor; avoid hepatotoxic medications. 4. Patient reports constipation requesting stool softeners; milk of magnesia twice a day as needed. Senokot S2 tablets twice daily. 5. Will follow closely with you. Thank you for this kind referral and the opportunity to participate in the care of your patient. This consultation was discussed with Dr. Garcia. The impression and plan of care have been directed as dictated.
[2017-09-25 13:36] LABS: Basophils # (A) 0.1 k/uL (0-0.2); Basophils % (A) 1 %; Eosinophils # (A) 0.2 k/uL (0-0.7); Eosinophils % (A) 3 %; HCT 47.6 % (39.0-53.0); HGB 16.1 gm/dL (13.0-17.5); Lymphocytes # (A) 1.6 k/uL (1.0-4.8); Lymphocytes % (A) 19 %; MCH 29.1 pg (25.0-35.0); MCHC 33.8 g/dL (31.0-37.0); MCV 86.1 fL (80.0-100.0); Mean Platelet Volume 6.2; Monocytes # (A) 0.5 k/uL (0-1.0); Monocytes % (A) 6 %; Neutrophils # (A) 6.1 k/uL (1.3-7.7); Neutrophils % (A) 71 %; Platelet Count 336 k/uL (150-450); RBC 5.53 m/uL (4.30-5.90); RDW 13.4 % (11.5-15.5); WBC 8.6 k/uL (3.8-10.6)
[2017-09-25 14:07] LABS: ALT 338 U/L (21-72); AST 169 U/L (17-59); Albumin 4.7 g/dL (3.5-5.0); Alkaline Phosphatase 67 U/L (38-126); Anion Gap 11 mmol/L; Blood Urea Nitrogen 11 mg/dL (9-20); Calcium 9.8 mg/dL (8.4-10.2); Carbon Dioxide 23 mmol/L (22-30); Chloride 103 mmol/L (98-107); Glucose 90 mg/dL (74-99); Potassium 4.8 mmol/L (3.5-5.1); Sodium 137 mmol/L (137-145); Total Bilirubin 0.9 mg/dL (0.2-1.3)
--- NOTE | 2017-09-25 15:34 | MR ---
MRCP HISTORY: Abdominal pain, transaminitis Multiplanar multisequence imaging through the abdomen, three-dimensional reconstructions performed th rough the biliary system. Correlation CT abdomen 09/25/2017 and 09/20/2017. No significant signal drop evident within the liver to suggest hepatic steatosis. Liver signal unrema rkable, no evident mass, gallbladder is normal. No evident filling defect within the biliary system, no biliary ductal dilatation, no evident stone. Pancreatic duct is unremarkable. Pancreas is normal. Adrenal glands and kidneys, spleen within normal limits. No retroperitoneal adenopathy or ascites. Ba silar atelectasis noted incidentally. IMPRESSION: No significant abnormalities evident to account for patient's symptoms.
[2017-09-25] MEDS: SENNOSIDES-DOCUSATE SODIUM 1 EACH TAB PO SCH ×2 (19:08→20:33)
[2017-09-25 20:14] LABS: Hepatitis A Antibody IgM Non-Reactive (Non-Reactive); Hepatitis B Core IgM Non-Reactive (Non-Reactive)
[2017-09-25] MEDS: KETOROLAC 30 MG/ML 1 ML VIAL IVP SCH (20:32)
[2017-09-25 21:27] LABS: Appearance,Urine Clear (Clear); Bilirubin,Urine Negative (Negative); Blood,Urine Negative (Negative); Color,Urine Colorless; Glucose,Urine (UA) Negative (Negative); Ketones,Urine 1+ (Negative); Leukocyte Esterase,Urine Negative (Negative); Nitrite,Urine Negative (Negative); PH, Urine 5.5 (5.0-8.0); Protein,Urine Negative (Negative); Specific Gravity,Urine 1.005 (1.001-1.035); Urobilinogen,Urine <2.0 mg/dL (<2.0)
[2017-09-26] MEDS: HEPARIN SODIUM,PORCINE 5,000 UNIT/ML 1 ML VIAL SQ SCH ×5 (00:16→23:37)
[2017-09-26] MEDS: KETOROLAC 30 MG/ML 1 ML VIAL IVP SCH ×5 (00:16→23:36)
[2017-09-26] MEDS: SODIUM CHLORIDE 0.9% 1,000 ML IV SCH ×2 (05:53→10:47)
[2017-09-26 07:55] LABS: Basophils # (A) 0.1 k/uL (0-0.2); Basophils % (A) 1 %; Eosinophils # (A) 0.6 k/uL (0-0.7); Eosinophils % (A) 10 %; HCT 44.5 % (39.0-53.0); HGB 14.8 gm/dL (13.0-17.5); Lymphocytes # (A) 1.7 k/uL (1.0-4.8); Lymphocytes % (A) 32 %; MCH 28.7 pg (25.0-35.0); MCHC 33.2 g/dL (31.0-37.0); MCV 86.6 fL (80.0-100.0); Mean Platelet Volume 6.3; Monocytes # (A) 0.4 k/uL (0-1.0); Monocytes % (A) 8 %; Neutrophils # (A) 2.5 k/uL (1.3-7.7); Neutrophils % (A) 47 %; Platelet Count 299 k/uL (150-450); RBC 5.14 m/uL (4.30-5.90); RDW 13.5 % (11.5-15.5); WBC 5.4 k/uL (3.8-10.6)
[2017-09-26 08:08] LABS: ALT 223 U/L (21-72); AST 89 U/L (17-59); Albumin 3.7 g/dL (3.5-5.0); Alkaline Phosphatase 53 U/L (38-126); Amylase 45 U/L (30-110); Anion Gap 5 mmol/L; Blood Urea Nitrogen 10 mg/dL (9-20); Carbon Dioxide 26 mmol/L (22-30); Chloride 107 mmol/L (98-107); Glucose 97 mg/dL (74-99); Lipase 126 U/L (23-300); Potassium 4.8 mmol/L (3.5-5.1); Sodium 138 mmol/L (137-145); Total Bilirubin 0.8 mg/dL (0.2-1.3); Total Protein 5.7 g/dL (6.3-8.2)
[2017-09-26] MEDS: FAMOTIDINE 20 MG TAB PO SCH ×2 (08:42→20:05)
--- NOTE | 2017-09-26 09:12 | P.PN ---
Progress Note - Text Progress Note Date: 09/26/17 Patient having less pain today. Still centered mostly in the right upper quadrant. Liver enzymes improved. He is afebrile. He was seen by GI last night. They're consultation was reviewed and I discussed with Dr. Baker. Abdomen soft, mild right upper quadrant and right mid abdominal tenderness. Per the discussion we had with the patient yesterday Will proceed with diagnostic laparoscopy with possible cholecystectomy. Presumptive diagnosis of gallstone pancreatitis from microlithiasis at this time. Additional etiologies reviewed with the patient and his family in detail. Risks of bleeding, infection, recurrent painful attacks, conversion to an open procedure, bowel resection, appendectomy, cholecystectomy, bile leak, retained common bile duct stone, bile duct injury, anesthesia related complications were reviewed. He understands and wishes to proceed.
--- NOTE | 2017-09-26 09:51 | P.PN ---
Subjective Progress Note Date: 09/26/17 Principal diagnosis: Transaminitis abdominal pain Right-sided abdominal pain improved but still present. Receiving IV Toradol. Afebrile. Transaminases improving. Scheduled for diagnostic laparoscopy today. Nonbloody BMs 1. No emesis. MRCP reported no acute abnormality. Objective - Vital Signs Vital signs: Vital Signs Temp 97.7 F 09/26/17 06:01 Pulse 68 09/26/17 06:01 Resp 18 09/26/17 06:01 BP 99/60 09/26/17 06:01 Pulse Ox 96 09/26/17 06:01 Intake & Output 09/25/17 09/26/17 09/26/17 18:59 06:59 18:59 Other: Voiding Method Toilet # Voids 3 - Exam General appearance: The patient is alert, oriented, in no acute distress. HET: Head is normocephalic and atraumatic. Pupils are equal and reactive. Oropharynx is clear without lesions. Neck: Supple without lymphadenopathy. Trachea midline. Heart: S1 S2. Regular rate and rhythm. Lungs: No crackles or wheezes are heard. Abdomen: Soft, right mid quadrant/ flank tenderness, nondistended with bowel sounds. No peritoneal signs. No palpable organomegaly or masses. Extremities: Normal skin color and turgor. No cyanosis, rash, ulceration, clubbing, or edema. Radial and pedal pulses are 2/4 bilaterally. Neurological: No focal deficits. Strength and sensation are grossly intact. - Labs CBC & Chem 7: 09/26/17 07:28 09/26/17 07:28 Labs: Abnormal Lab Results - Last 24 Hours (Table) 09/25/17 09/25/17 09/26/17 Range/Units 13:22 20:40 07:28 AST 169 H 89 H (17-59) U/L ALT 338 H 223 H (21-72) U/L Total Protein 5.7 L (6.3-8.2) g/dL Urine Ketones 1+ H (Negative) Assessment and Plan (1) Abdominal pain Current Visit: No Status: Acute Code(s): R10.9 - UNSPECIFIED ABDOMINAL PAIN SNOMED Code(s): 39060260 (2) Transaminitis Narrative/Plan: Improved Current Visit: Yes Status: Acute Code(s): R74.0 - NONSPEC ELEV OF LEVELS OF TRANSAMNS & LACTIC ACID DEHYDRGNSE SNOMED Code(s): 818513193 Plan: 1. Diagnostic laparoscopy today. 2. Continue supportive measures. 3. CMP in a.m. Assessment and plan a care discussed with Dr. Garcia
[2017-09-26] MEDS: SENNOSIDES-DOCUSATE SODIUM 1 EACH TAB PO SCH ×2 (10:46→20:05)
[2017-09-26] MEDS ORDERED: IV FLUID CONTINUATION 1,000 ML IV ONE (11:05)
[2017-09-26] MEDS ORDERED: MIDAZOLAM 2 MG/2 ML VIAL IVP ONE ×2 (11:10→11:20)
[2017-09-26] MEDS ORDERED: DEXAMETHASONE SOD PHOSPHATE 10 MG/ML 1 ML VIAL IV ONE (11:26)
[2017-09-26] MEDS ORDERED: ONDANSETRON 4 MG/2 ML VIAL IVP ONE (11:29)
[2017-09-26] MEDS ORDERED: ROPIVACAINE 5 MG/ML 30 ML VIAL MISCELLANE ONE ×3 (12:43→13:03)
[2017-09-26] MEDS ORDERED: ROCURONIUM BROMIDE 10 MG/ML 10 ML VIAL IV ONE (12:48)
[2017-09-26] MEDS ORDERED: GLYCOPYRROLATE 0.2 MG/ML 2 ML VIAL ONE (12:48)
[2017-09-26] MEDS ORDERED: PROPOFOL 10 MG/ML 20 ML VIAL IV ONE (12:48)
[2017-09-26] MEDS ORDERED: NEOSTIGMINE 1 MG/ML 10 ML VIAL ONE (12:48)
[2017-09-26] MEDS ORDERED: KETOROLAC 30 MG/ML 1 ML VIAL ONE (12:48)
[2017-09-26] MEDS ORDERED: MIDAZOLAM 2 MG/2 ML VIAL ONE (12:48)
[2017-09-26] MEDS ORDERED: SUCCINYLCHOLINE CHLORIDE 100 MG/5 ML SYR IV ONE (12:48)
[2017-09-26] MEDS ORDERED: ONDANSETRON 4 MG/2 ML VIAL ONE (12:48)
[2017-09-26] MEDS ORDERED: HYDROmorphone (PF) 1 MG/ML ONE (12:48)
[2017-09-26] MEDS ORDERED: fentaNYL (PF) 50 MCG/ML 2 ML AMP ONE (12:48)
[2017-09-26] MEDS ORDERED: SODIUM CHLORIDE 0.9% 50 ML with ceFAZolin 2,000 MG IV ONE ×2 (13:00)
[2017-09-26] MEDS ORDERED: LACTATED RINGERS 1,000 ML IV ONE ×2 (13:38)
--- NOTE | 2017-09-26 14:22 | P.OP ---
Date of Procedure: 09/26/17 Procedure(s) Performed: PREOPERATIVE DIAGNOSIS: Abdominal pain POSTOPERATIVE DIAGNOSIS: Chronic cholecystitis with suspected gallstone pancreatitis PROCEDURE: Diagnostic laparoscopy with laparoscopic cholecystectomy SURGEON: Ketan EBL: Minimal see anesthesia record ANESTHESIA: Gen. COMPLICATIONS: None OPERATIVE PROCEDURE: The patient was brought and placed on the operating room table in the supine position. The patient was placed under general anesthesia at that time. The abdomen was prepped and draped in the usual sterile fashion. A small vertical infraumbilical incision was made. The fascia was grasped with the Cici forceps. The fascia was retracted anteriorly. The Veress needle was advanced into the peritoneal cavity. The saline drop test was normal. Insufflation took place up to 15 mmHg. A 5 mm optical trocar was advanced and the peritoneal cavity. An additional 5 mm trocar was then placed in the left lower quadrant under direct visualization and a 5 mm trocar in the right upper quadrant under direct visualization. The patient's. No cavity was inspected. The cecum and ascending transverse and visualized sigmoid colon appeared normal. The appendix was identified and a somewhat retrocecal course although I could visualize the entire appendix and this appeared normal. The small bowel was run from the terminal ileum to the ligament of Treitz without abnormalities identified. The mesentery was free of inflammation or edema. The patient's bladder was somewhat full during this procedure. The liver and visualized stomach appeared normal. The gallbladder had no outward appearances of abnormalities. At that time an additional 5 mm trocar was placed in the right upper quadrant under direct visualization. A 10 mm trocar was advanced into the epigastric incision site. The gallbladder was retracted superiorly and laterally. The peritoneum overlying the infundibulum was bluntly dissected. The patient's cystic duct was visualized. The junction between the cystic duct common and hepatic duct was identified. The cystic duct was then divided after placement of 3 10 mm clips on the patient's side and one on the specimen side. The cystic artery was identified and clipped as well. A small vessel was seen along the gallbladder fossa and clipped as well. The gallbladder was then removed from the liver bed using electrocautery. The gallbladder was then removed from the epigastric trocar site with an Endo Catch bag. The gallbladder fossa was irrigated with saline. There was no evidence of any bleeding or biliary drainage seen. The trochars were then removed. The fascia at the 10 millimeter site was closed using a [id number] 0 Vicryl stitch. The skin at all 4 sites was closed using a 4-0 Monocryl stitch. At the end of this procedure the sponge and needle counts were correct. At that point I opened the gallbladder off of the field. 2 small 3-4 mm stones were identified within the gallbladder lumen. One was floating freely one was stuck to the wall. The patient's recent attacks of pain hopefully can be explained on the basis of choledocholithiasis/gallstone pancreatitis. We'll monitor the patient postoperatively this evening and possibly discharge later today. DISPOSITION: Stable to the recovery room
[2017-09-26] MEDS ORDERED: METOCLOPRAMIDE 5 MG/ML 2 ML VIAL IVP ONE (14:29)
[2017-09-26] MEDS ORDERED: PHENYLEPHRINE 10 MG/ML VIAL IV ONE (14:43)
[2017-09-26] MEDS ORDERED: PROMETHAZINE INJ 25 MG/ML 1 ML VIAL IVPB ONE (14:43)
[2017-09-26] MEDS: HYDROmorphone 1 MG/ML 1 ML SYRINGE IVP ONE ×4 (15:20→15:43)
[2017-09-26] MEDS ORDERED: HYDROmorphone 1 MG/ML 1 ML SYRINGE IVP ONE (15:29)
[2017-09-26 16:07] VITALS: BMI 25.8
[2017-09-26] MEDS: HYDROmorphone 1 MG/ML 1 ML SYRINGE IVP PRN ×3 (16:56→22:49)
[2017-09-26] MEDS ORDERED: MAG HYDROX/AL HYDROX/SIMETH 30 ML CUP PO PRN (17:19)
--- NOTE | 2017-09-26 17:38 | P.CONS ---
History of Present Illness - Reason for Consult Consult date: 09/26/17 - History of Present Illness 47 years old patient male with past medical history of asthma, hyperlipidemia who was recently hospitalized with a weekend for acute abdominal pain. Patient could not be seen yesterday as patient is going for the MRCP. The pain is located in the right side of the abdomen. Patient states that he felt better on discharge but the pain worsened yesterday him at 3 in the morning and patient had to come to the ER. Patient's liver function enzymes elevated. Total bilirubin and alk phos are normal. Lipase was 660. Patient underwent MRCP yesterday with no significant finding to suggest cholecystitis. Patient seen by Dr. Palomares and senior java web application developer who recommended going for diagnostic laparoscopy with possible cholecystectomy. Patient underwent laparoscopic cholecystectomy with possible chronic cholecystitis and gallstone pancreatitis. Patient seen postoperatively doing well. Complains of significant pain in the substernal area but denies any nausea or radiation of pain to his arms. Vitals are stable with a pulse rate of 77, respiratory rate 16, blood pressure 134/82 saturating well on room air. LFTs has improved from 253 AST 289. ALT decreased from 371-223. Lipase have improved from 660-126. Review of Systems Constitutional: Denies chills, Denies fever, Denies lethargy, Denies malaise, Denies poor appetite, Denies weakness, Denies weight loss Eyes: denies decreased vision, denies diplopia, denies discharge, denies pain Ears: deny: decreased hearing Ears, nose, mouth and throat: Denies dental pain, Denies headache, Denies nasal discharge, Denies nose pain Cardiovascular: Denies chest pain, Denies decreased exercise tolerance, Denies edema, Denies high blood pressure, Denies irregular heart beat, Denies palpitations, Denies paroxysmal nocturnal dyspnea, Denies rapid heart beat, Denies shortness of breath Respiratory: Denies congestion, Denies cough, Denies cough with sputum, Denies dyspnea, Denies home oxygen, Denies wheezing Gastrointestinal: Endorses abdominal pain, Denies change in bowel habits, Denies coffee ground emesis, Denies early satiety, Denies excessive gas, Denies heartburn, Denies hematemesis, Denies hematochezia, Denies loss of appetite, Denies nausea, Denies vomiting Genitourinary: Denies dysuria, Denies flank pain, Denies kidney stones, Denies menorrhagia, Denies urgency, Denies urinary frequency Musculoskeletal: Denies gait dysfunction, Denies limitation of motion, Denies morning stiffness, Denies muscle cramps Integumentary: Denies rash, Denies wounds, Denies brittle nails, Denies change in hair/nails, Denies darkening of skin Neurological: Denies balance difficulties, Denies change in speech, Denies double vision, Denies gait dysfunction, Denies loss of vision, Denies motor disturbance, Denies numbness, Denies paralysis, Denies paresthesias, Denies seizures Psychiatric: Denies anxiety, Denies depression Endocrine: Denies excessive sweating, Denies excessive thirst, Denies high blood sugars, Denies palpitations Hematologic/Lymphatic: Denies easy bruising, Denies lymphadenopathy Past Medical History Past Medical History: Asthma, Hyperlipidemia Additional Past Medical History / Comment(s): sinus problems, recent diagnosis of hyperlipidemia History of Any Multi-Drug Resistant Organisms: None Reported Past Surgical History: Hernia Repair Additional Past Surgical History / Comment(s): sinus surgery 3, right testicular varicocele repair 2, left inguinal hernia repair as a child. Past Anesthesia/Blood Transfusion Reactions: No Reported Reaction Additional Past Anesthesia/Blood Transfusion Reaction / Comm: Pt. reports that he has never had a blood transfusion. Past Psychological History: No Psychological Hx Reported Smoking Status: Never smoker Past Alcohol Use History: Occasional Past Drug Use History: None Reported - Past Family History Brother(s) Family Medical History: Asthma, Cancer Additional Family Medical History / Comment(s): Patient has one brother with basal cell skin cancer, asthma and some type of corneal problem. Patient does not have any sisters. Father Family Medical History: AFIB, Cancer, Diabetes Mellitus, Hyperlipidemia, Hypertension Additional Family Medical History / Comment(s): Father is alive at age 79 with history of atrial fibrillation, diabetes, hypertension, hyperlipidemia, CVA or TIA, and prostate cancer. Mother Additional Family Medical History / Comment(s): Mother is alive at age 76 with history of rheumatoid arthritis and left knee arthroplasty. Daughter(s) Additional Family Medical History / Comment(s): Patient has one daughter with history of atrial septal defect and to ventricular septal defects. Medications and Allergies Home Medications Medication Instructions Recorded Confirmed Type Atorvastatin [Lipitor] 20 mg PO HS 09/20/17 09/25/17 History Mometasone Furoate [Nasonex Nasal 1 spr EA NOSTRIL BID 09/20/17 09/25/17 History Cleves] Aspirin EC [Ecotrin Low Dose] 81 mg PO DAILY 09/25/17 09/25/17 History Fluticasone/Vilanterol [Breo 1 puff INHALATION RT-DAILY 09/25/17 09/25/17 History Ellipta 100-25 Mcg Inhaler] amLODIPine [Norvasc] 2.5 mg PO DAILY 09/25/17 09/25/17 History Allergies Allergy/AdvReac Type Severity Reaction Status Date / Time No Known Allergies Allergy Verified 09/25/17 07:30 Physical Exam Vitals: Vital Signs Temp Pulse Pulse Resp BP BP Pulse Ox 09/26/17 16:18 97.6 F 77 16 134/82 95 09/26/17 16:00 80 20 108/68 99 09/26/17 15:45 73 20 117/73 99 09/26/17 15:30 59 L 20 134/77 99 09/26/17 15:15 65 20 126/78 97 09/26/17 15:02 61 20 109/69 97 09/26/17 14:45 62 20 119/70 97 09/26/17 14:32 60 20 119/71 95 09/26/17 14:25 97.7 F 62 20 126/70 95 09/26/17 10:59 97.4 F L 61 16 135/85 98 09/26/17 09:10 97.7 F 68 18 99/60 96 09/26/17 08:00 68 18 09/26/17 06:01 97.7 F 68 18 99/60 96 09/25/17 19:20 97.7 F 78 18 129/78 98 09/25/17 17:41 98.1 F 72 18 139/85 97 Intake and Output 09/26/17 09/26/17 09/26/17 06:59 14:59 22:59 Intake Total 1700 Output Total 10 400 Balance 1690 -400 Intake: IV 1700 Output: Urine 400 Estimated Blood Loss 10 Other: Voiding Method Toilet # Voids 3 Weight 79.379 kg 79.379 kg - Constitutional General appearance: cooperative, mild acute distress, thin - EENT Eyes: anicteric sclerae, PERRLA, normal appearance ENT: hearing grossly normal - Neck Neck: no lymphadenopathy, normal ROM, no other, no rigidity, no stridor, no thyromegaly - Respiratory Respiratory: bilateral: CTA, negative: diminished, dullness, rales, rhonchi - Cardiovascular Rhythm: regular Heart sounds: normal: S1, S2 Abnormal Heart Sounds: no systolic murmur, no diastolic murmur, no rub, no S3 Gallop, no S4 Gallop, no click, no other - Gastrointestinal General gastrointestinal: normal bowel sounds, soft tender in the right upper quadrant at the site of surgical incision - Integumentary Integumentary: no rash - Neurologic Neurologic: CNII-XII intact - Musculoskeletal Musculoskeletal: gait normal, strength equal bilaterally - Psychiatric Psychiatric: A&O x's 3, appropriate affect Results CBC & Chem 7: 09/26/17 07:28 08 07:28 Labs: Abnormal Lab Results - Last 24 Hours (Table) 09/25/17 09/26/17 Range/Units 20:40 07:28 AST 89 H (17-59) U/L ALT 223 H (21-72) U/L Total Protein 5.7 L (6.3-8.2) g/dL Urine Ketones 1+ H (Negative) Assessment and Plan Plan: 1. Right middle and right upper abdominal pain secondary to possible cholelithiasis and gallstone pancreatitis. MRCP negative for CBD dilation or inflammation of the gallbladder. Status post laparoscopic cholecystectomy with possible chronic cholecystitis and gallstone pancreatitis. Continue current pain management with morphine or Toradol and Zofran for nausea. 2. Hyperlipidemia. Continue Lipitor 20 mg at bedtime once patient is eating. 3. Chronic sinus problems. Continue Nasonex spray. 4. DVT prophylaxis. Heparin subcu. 5. GI prophylaxis. Protonix 40 mg IV daily 6 substernal chest pain likely secondary to GERD Will switch Pepcid to Protonix 40 IV daily. Will try Maalox for GI relief Thank you for the consult. We will happy to assist in patient's medical need while in the hospital
[2017-09-26] MEDS: PANTOPRAZOLE 40 MG/10 ML VIAL IVP SCH (20:05)
[2017-09-27] MEDS ORDERED: ACETAMINOPHEN IV (For NPO) 1,000 MG in EMPTY BAG 1 BAG IVPB SCH
[2017-09-27] MEDS: ACETAMINOPHEN IV (For NPO) 1,000 MG in EMPTY BAG 1 BAG IVPB PRN ×2 (00:01→06:58)
[2017-09-27] MEDS: SODIUM CHLORIDE 0.9% 1,000 ML IV SCH ×2 (02:01→07:08)
[2017-09-27 06:24] VITALS: BP 110/56; PULSE 67; RESP 16; TEMP 97.9
[2017-09-27 08:00] LABS: ALT 146 U/L (21-72); AST 42 U/L (17-59); Albumin 3.3 g/dL (3.5-5.0); Alkaline Phosphatase 49 U/L (38-126); Anion Gap 7 mmol/L; Blood Urea Nitrogen 6 mg/dL (9-20); Calcium 8.9 mg/dL (8.4-10.2); Carbon Dioxide 23 mmol/L (22-30); Chloride 109 mmol/L (98-107); Glucose 91 mg/dL (74-99); Potassium 4.3 mmol/L (3.5-5.1); Sodium 139 mmol/L (137-145); Total Bilirubin 0.4 mg/dL (0.2-1.3); Total Protein 5.2 g/dL (6.3-8.2)
[2017-09-27] MEDS ORDERED: KETOROLAC 30 MG/ML 1 ML VIAL IVP STA (08:37)
[2017-09-27] MEDS: PANTOPRAZOLE 40 MG/10 ML VIAL IVP SCH (08:39)
[2017-09-27] MEDS: HEPARIN SODIUM,PORCINE 5,000 UNIT/ML 1 ML VIAL SQ SCH (08:39)
[2017-09-27] MEDS: SENNOSIDES-DOCUSATE SODIUM 1 EACH TAB PO SCH (08:39)
[2017-09-27] MEDS: HYDROmorphone 1 MG/ML 1 ML SYRINGE IVP PRN (09:08)
== END 2017-09-27 09:55 | disposition home or self-care (01) ==
LOC: EC 03:49 → 3SUR 07:55 → 5MS5E 15:16
PROVIDERS: ADMIT Surgery; ATTEND Surgery
DX: R10.11 Right upper quadrant pain (principal); K81.1 Chronic cholecystitis; R74.0 Nonspecific elevation of levels of transaminase and lactic acid dehydrogenase [LDH]; K59.00 Constipation, unspecified; J45.909 Unspecified asthma, uncomplicated; R07.2 Precordial pain; E78.5 Hyperlipidemia, unspecified; Z79.51 Long term (current) use of inhaled steroids; Z79.899 Other long term (current) drug therapy; Z82.5 Family history of asthma and other chronic lower respiratory diseases; Z80.8 Family history of malignant neoplasm of other organs or systems; Z83.3 Family history of diabetes mellitus; Z82.49 Family history of ischemic heart disease and other diseases of the circulatory system; Z82.3 Family history of stroke; Z80.42 Family history of malignant neoplasm of prostate; Z83.49 Family history of other endocrine, nutritional and metabolic diseases; Z82.61 Family history of arthritis; Z82.79 Family history of other congenital malformations, deformations and chromosomal abnormalities
CPT/HCPCS: 47562; 99285 ×2; 96374 ×2; 96375 ×5; 96376 ×3; 96372 ×3; 96361; 36415; 93005; 88304; 80053 ×3; 80074; 82150 ×2; 83605; 83690 ×2; 85025 ×2; 81003; 74018; 74174; 74181; G0378 ×4; J2250; J2270; J1644 ×3; J1100; J2550; J2710; J2765; J2405 ×2; J3010; J1885 ×3; J1170 ×3; J0690; J2795; J0131 ×2; J0330; J2704; C9113 ×2; Q9967

== ENCOUNTER → 2017-10-02 | Outpatient (CLI) | payer MEDICAID ==
[2017-10-02 09:50] LABS: HCT 53.7 % (39.0-53.0); MCH 28.8 pg (25.0-35.0); MCHC 33.6 g/dL (31.0-37.0); MCV 85.6 fL (80.0-100.0); Mean Platelet Volume 6.4; Platelet Count 418 k/uL (150-450); RBC 6.28 m/uL (4.30-5.90); RDW 13.1 % (11.5-15.5); WBC 12.4 k/uL (3.8-10.6)
[2017-10-02 10:07] LABS: ALT 136 U/L (21-72); AST 38 U/L (17-59); Albumin 4.6 g/dL (3.5-5.0); Alkaline Phosphatase 65 U/L (38-126); Amylase 123 U/L (30-110); Anion Gap 11 mmol/L; Blood Urea Nitrogen 18 mg/dL (9-20); Calcium 10.4 mg/dL (8.4-10.2); Carbon Dioxide 23 mmol/L (22-30); Chloride 105 mmol/L (98-107); Glucose 117 mg/dL (74-99); Lipase 865 U/L (23-300); Potassium 4.8 mmol/L (3.5-5.1); Sodium 139 mmol/L (137-145); Total Bilirubin 0.6 mg/dL (0.2-1.3); Total Protein 7.1 g/dL (6.3-8.2)
[2017-10-02 10:08] LABS: HGB 18.1 gm/dL (13.0-17.5)
== END | disposition home or self-care (01) ==
LOC: LABWHC1 09:28
PROVIDERS: ATTEND Surgery
DX: R10.31 Right lower quadrant pain (principal)
CPT/HCPCS: 36415; 80053; 82150; 83690; 85027

== ENCOUNTER → 2017-10-04 | Outpatient (CLI) | payer MEDICAID ==
[2017-10-04 11:07] LABS: Basophils # (A) 0.1 k/uL (0-0.2); Basophils % (A) 1 %; Eosinophils # (A) 0.5 k/uL (0-0.7); Eosinophils % (A) 7 %; HCT 47.4 % (39.0-53.0); Lymphocytes # (A) 1.7 k/uL (1.0-4.8); Lymphocytes % (A) 24 %; MCH 29.1 pg (25.0-35.0); MCHC 33.7 g/dL (31.0-37.0); MCV 86.5 fL (80.0-100.0); Mean Platelet Volume 6.6; Monocytes # (A) 0.5 k/uL (0-1.0); Monocytes % (A) 8 %; Neutrophils # (A) 4.3 k/uL (1.3-7.7); Neutrophils % (A) 59 %; Platelet Count 348 k/uL (150-450); RBC 5.48 m/uL (4.30-5.90); WBC 7.2 k/uL (3.8-10.6)
[2017-10-04 11:30] LABS: ALT 85 U/L (21-72); AST 26 U/L (17-59); Albumin 4.5 g/dL (3.5-5.0); Alkaline Phosphatase 57 U/L (38-126); Amylase 65 U/L (30-110); Anion Gap 8 mmol/L; Blood Urea Nitrogen 13 mg/dL (9-20); Carbon Dioxide 29 mmol/L (22-30); Chloride 103 mmol/L (98-107); Glucose 93 mg/dL (74-99); Lipase 173 U/L (23-300); Potassium 5.4 mmol/L (3.5-5.1); Sodium 140 mmol/L (137-145); Total Bilirubin 1.1 mg/dL (0.2-1.3); Total Protein 7.1 g/dL (6.3-8.2)
== END | disposition home or self-care (01) ==
LOC: LABWHC1 09:56
PROVIDERS: ATTEND Surgery
DX: K81.1 Chronic cholecystitis (principal); E83.52 Hypercalcemia
CPT/HCPCS: 36415; 80053; 82150; 83690; 83970; 85025

== ENCOUNTER → 2017-10-10 | Outpatient (CLI) | payer MEDICAID ==
[2017-10-10 12:47] LABS: HCT 45.2 % (39.0-53.0); HGB 14.6 gm/dL (13.0-17.5); MCH 28.4 pg (25.0-35.0); MCHC 32.2 g/dL (31.0-37.0); MCV 88.2 fL (80.0-100.0); Mean Platelet Volume 6.4; Platelet Count 362 k/uL (150-450); RBC 5.13 m/uL (4.30-5.90); RDW 13.2 % (11.5-15.5); WBC 8.6 k/uL (3.8-10.6)
[2017-10-10 13:23] LABS: ALT 42 U/L (21-72); AST 18 U/L (17-59); Albumin 4.5 g/dL (3.5-5.0); Alkaline Phosphatase 61 U/L (38-126); Amylase 81 U/L (30-110); Anion Gap 8 mmol/L; Blood Urea Nitrogen 11 mg/dL (9-20); Calcium 9.7 mg/dL (8.4-10.2); Carbon Dioxide 27 mmol/L (22-30); Chloride 106 mmol/L (98-107); Glucose 90 mg/dL (74-99); Lipase 326 U/L (23-300); Potassium 4.8 mmol/L (3.5-5.1); Sodium 141 mmol/L (137-145); Total Bilirubin 0.8 mg/dL (0.2-1.3); Total Protein 6.9 g/dL (6.3-8.2)
== END | disposition home or self-care (01) ==
LOC: LABWHC1 11:45
PROVIDERS: ATTEND Surgery
DX: R10.9 Unspecified abdominal pain (principal)
CPT/HCPCS: 36415; 80053; 82150; 83690; 85027

== ENCOUNTER → 2019-08-29 | Outpatient (CLI) | payer MEDICAID ==
[2019-08-29 08:58] LABS: Basophils # (A) 0.1 k/uL (0-0.2); Basophils % (A) 2 %; Eosinophils # (A) 0.7 k/uL (0-0.7); Eosinophils % (A) 10 %; HCT 47.1 % (39.0-53.0); HGB 15.4 gm/dL (13.0-17.5); Lymphocytes # (A) 1.9 k/uL (1.0-4.8); Lymphocytes % (A) 26 %; MCH 29.2 pg (25.0-35.0); MCHC 32.6 g/dL (31.0-37.0); MCV 89.7 fL (80.0-100.0); Mean Platelet Volume 6.7; Monocytes # (A) 0.5 k/uL (0-1.0); Monocytes % (A) 7 %; Neutrophils # (A) 3.8 k/uL (1.3-7.7); Neutrophils % (A) 54 %; Platelet Count 293 k/uL (150-450); RBC 5.26 m/uL (4.30-5.90); RDW 13.4 % (11.5-15.5); WBC 7.1 k/uL (3.8-10.6)
[2019-08-29 15:38] LABS: African American GFR (CKD) 115.8 (60.0-200.0); Albumin 4.3 g/dL (3.80-4.90); Albumin/Globulin Ratio 2.15 (1.60-3.17); Anion Gap 4.8 mmol/L (4.00-12.00); BUN/Creat Ratio 17.78 Ratio (12.00-20.00); Calcium 9.4 mg/dL (8.7-10.3); Carbon Dioxide 27.2 mmol/L (21.6-31.8); Chol/HDL Ratio 3.5; Non-African American GFR(CKD) 99.9 (60.0-200.0); Potassium 4.6 mmol/L (3.5-5.5); Total Bilirubin 0.7 mg/dL (0.2-1.2); Total Protein 6.3 g/dL (6.2-8.2)
== END | disposition home or self-care (01) ==
LOC: LABWHC1 08:23
PROVIDERS: ATTEND Internal Medicine
DX: Z00.00 Encounter for general adult medical examination without abnormal findings (principal); N40.0 Benign prostatic hyperplasia without lower urinary tract symptoms; R53.1 Weakness
CPT/HCPCS: 36415; 80053; 80061; 84153; 84403; 84443; 85025

== ENCOUNTER → 2020-03-10 | Outpatient (CLI) | payer MEDICAID ==
[2020-03-10 10:19] LABS: Basophils # (A) 0.1 k/uL (0-0.2); Basophils % (A) 1 %; Eosinophils # (A) 0.4 k/uL (0-0.7); Eosinophils % (A) 6 %; HCT 47.6 % (39.0-53.0); HGB 16.1 gm/dL (13.0-17.5); Lymphocytes # (A) 1.8 k/uL (1.0-4.8); Lymphocytes % (A) 26 %; MCH 30.1 pg (25.0-35.0); MCHC 33.8 g/dL (31.0-37.0); MCV 88.9 fL (80.0-100.0); Mean Platelet Volume 6.7; Monocytes # (A) 0.5 k/uL (0-1.0); Monocytes % (A) 7 %; Neutrophils # (A) 4.2 k/uL (1.3-7.7); Neutrophils % (A) 59 %; Platelet Count 327 k/uL (150-450); RBC 5.35 m/uL (4.30-5.90); RDW 12.9 % (11.5-15.5); WBC 7.1 k/uL (3.8-10.6)
[2020-03-10 18:14] LABS: Hemoglobin A1C 5.7 % (4.0-6.0)
[2020-03-10 21:34] LABS: Albumin 4.8 g/dL (3.80-4.90); Albumin/Globulin Ratio 2.67 (1.60-3.17); Anion Gap 4.4 mmol/L (4.00-12.00); Calcium 9.8 mg/dL (8.7-10.3); Carbon Dioxide 30.6 mmol/L (21.6-31.8); Chol/HDL Ratio 4.79; Globulin 1.8 g/dL (1.6-3.3); LDL Cholesterol,Calculated 109.8 mg/dL (0.0-131.0); Potassium 4.7 mmol/L (3.5-5.5); Total Bilirubin 0.5 mg/dL (0.2-1.2); Total Protein 6.6 g/dL (6.2-8.2); VLDL Calculation 49.2 mg/dL (5.00-40.00)
[2020-03-10 21:42] LABS: Prostate Specific Antigen 0.7 ng/mL (0.0-2.5)
== END | disposition home or self-care (01) ==
LOC: LABWHC1 08:23
PROVIDERS: ATTEND Internal Medicine
DX: E78.2 Mixed hyperlipidemia (principal); J30.1 Allergic rhinitis due to pollen; J45.30 Mild persistent asthma, uncomplicated; N40.0 Benign prostatic hyperplasia without lower urinary tract symptoms
CPT/HCPCS: 36415; 80053; 80061; 83036; 84153; 84443; 85025

== ENCOUNTER → 2020-10-13 | Outpatient (CLI) | payer MEDICAID | END | disposition home or self-care (01) | LOC: LABWHC1 11:08 | PROVIDERS: ATTEND Thoracic Surgery (Cardiothoracic Vascular Surgery) | DX: Z20.822 Contact with and (suspected) exposure to COVID-19 (principal) | CPT/HCPCS: 87635; C9803 ==

== ENCOUNTER → 2020-11-04 | Outpatient (CLI) | payer MEDICAID ==
[2020-11-04 09:55] LABS: Appearance,Urine Clear (Clear); Bilirubin,Urine Negative (Negative); Blood,Urine Negative (Negative); Color,Urine Light Yellow; Glucose,Urine (UA) Negative (Negative); Ketones,Urine Negative (Negative); Leukocyte Esterase,Urine Negative (Negative); Nitrite,Urine Negative (Negative); PH, Urine 6.5 (5.0-8.0); Protein,Urine Negative (Negative); Specific Gravity,Urine 1.012 (1.001-1.035); Urobilinogen,Urine <2.0 mg/dL (<2.0)
[2020-11-04 15:02] LABS: Basophils # (A) 0.08 X 10*3/uL (0.00-0.10); Basophils % (A) 1.3 %; Eosinophils # (A) 0.39 X 10*3/uL (0.04-0.35); Eosinophils % (A) 6.4 %; HCT 45.9 % (39.6-50.0); HGB 15.3 g/dL (13.0-17.0); Lymphocytes # (A) 1.68 X 10*3/uL (0.90-5.00); Lymphocytes % (A) 27.4 %; MCH 30.4 pg (27.0-32.0); MCHC 33.3 g/dL (32.0-37.0); MCV 91.1 fL (80.0-97.0); Mean Platelet Volume 9.8 fL (9.5-12.2); Monocytes # (A) 0.69 X 10*3/uL (0.20-1.00); Monocytes % (A) 11.3 %; Neutrophils # (A) 3.26 X 10*3/uL (1.80-7.70); Neutrophils % (A) 53.1 %; Platelet Count 289 X 10*3/uL (140-440); RBC 5.04 X 10*6/uL (4.40-5.60); RDW 13.4 % (11.5-14.5); WBC 6.13 X 10*3/uL (4.50-10.00)
[2020-11-04 16:53] LABS: Hemoglobin A1C 5.8 % (4.0-6.0)
[2020-11-05 02:42] LABS: Albumin 4.6 g/dL (3.80-4.90); Albumin/Globulin Ratio 2.3 (1.60-3.17); BUN/Creat Ratio 13.33 Ratio (12.00-20.00); Calcium 9.6 mg/dL (8.7-10.3); Chol/HDL Ratio 3.08; LDL Cholesterol,Calculated 76.4 mg/dL (0.0-131.0); Non-African American GFR(CKD) 99.2 (60.0-200.0); Potassium 4.9 mmol/L (3.5-5.5); Total Bilirubin 0.9 mg/dL (0.2-1.2); Total Protein 6.6 g/dL (6.2-8.2); VLDL Calculation 23.6 mg/dL (5.00-40.00)
[2020-11-05 02:50] LABS: Prostate Specific Antigen 0.7 ng/mL (0.0-3.5)
== END | disposition home or self-care (01) ==
LOC: LABWHC1 08:43
PROVIDERS: ATTEND Internal Medicine
DX: Z00.00 Encounter for general adult medical examination without abnormal findings (principal); J45.30 Mild persistent asthma, uncomplicated; E78.2 Mixed hyperlipidemia; E55.9 Vitamin D deficiency, unspecified; N40.0 Benign prostatic hyperplasia without lower urinary tract symptoms
CPT/HCPCS: 36415; 80053; 80061; 81003; 82306; 83036; 84153; 84402; 84403; 84443; 85025

== ENCOUNTER → 2021-02-16 | Outpatient (CLI) | payer MEDICAID ==
--- NOTE | 2021-02-17 07:48 | CT ---
EXAMINATION TYPE: CT abdomen pelvis wo con DATE OF EXAM: 02/16/2021 COMPARISON: September 25, 2017 HISTORY: right flank pain CT DLP: 604.1 mGycm Examination of the solid and hollow viscera is limited given the lack of contrast. FINDINGS: LUNG BASES: No evidence for nodule. No evidence for infiltrate. LIVER/GB: The gallbladder is surgically absent. No space-occupying hepatic lesion. PANCREAS: No pancreatic mass identified. No inflammatory process seen. SPLEEN: No evidence for splenomegaly. No intrasplenic lesions seen. ADRENALS: No adrenal nodules identified. No evidence for thickening. KIDNEYS: No evidence for renal mass. No nephrolithiasis. No hydronephrosis. BOWEL: Appendix has a normal appearance. No evidence of bowel obstruction. No inflammatory process. Lymph nodes: No evidence for adenopathy greater than 1 cm. Abdominal aorta: Atheromatous changes seen. No evidence for aneurysm. Genital organs: No significant abnormality. Other: No significant abnormality. IMPRESSION: NO SIGNIFICANT ABNORMALITY TO ACCOUNT FOR THE PATIENT'S SYMPTOMS.
== END | disposition home or self-care (01) ==
LOC: RADCTMAIN 16:53
PROVIDERS: ATTEND Internal Medicine
DX: R10.9 Unspecified abdominal pain (principal)
CPT/HCPCS: 74176

== ENCOUNTER → 2021-03-03 | Outpatient (CLI) | payer MEDICAID ==
--- NOTE | 2021-03-03 17:04 | CT ---
EXAMINATION TYPE: CT heart w calcium score DATE OF EXAM: 03/03/2021 COMPARISON: None. HISTORY: Screening for cardiovascular disorder. 213.9 CT DLP: 71.70 mGycm Automated exposure control for dose reduction was used. CT CALCIUM SCORING Coronary calcium is a marker for plaque (fatty deposits) in a blood vessel or atherosclerosis (harden ing of the arteries). The presence and amount of calcium detected in a coronary artery by the CT sca n, indicates the presence and amount of atherosclerotic plaque. These calcium deposits appear years before the development of heart disease symptoms such as chest pain and shortness of breath. A calcium score is computed for each of the coronary arteries based upon the volume and density of th e calcium deposits. This can be referred to as your calcified plaque burden. It does not correspond directly to the percentage of narrowing in the artery but does correlate with the severity of the un derlying coronary atherosclerosis. PROCEDURE TECHNIQUE - Prospective Gating was used. Slice thickness: 3mm. Density threshold (HU): 130, Pixel threshold: 3, Algorithm: discrete. RESULTS Region: LM Calcium Score ([place]): 0 Volume (mm3): 0 Mass (g): 0 Region: RCA Calcium Score ([place]): 0 Volume (mm3): 0 Mass (g): 0 Region: LAD Calcium Score ([place]): 0 Volume (mm3): 0 Mass (g): 0 Region: CX Calcium Score ([place]): 0 Volume (mm3): 0 Mass (g): 0 Region: PDA Calcium Score ([place]): 0 Volume (mm3): 0 Mass (g): 0 Total: Calcium Score ([place]): 0 Volume (mm3): 0 Mass (g): 0 TOTAL CALCIUM SCORE: 0 Tiny anterior-inferior pericardial effusion otherwise no significant incidental findings. IMPRESSION: Calcium Score: 0 Implication: No identifiable plaque. Risk of Coronary Artery Disease: Very low, generally less than 5%. CALCIUM SCORE IMPLICATION RISK OF C ORONARY ARTERY DISEASE 0 No identifiable plaque Very low, generally less than 5% 1-10 Minimal identifiable plaque Very unlikely, less than 10% 11-100 Definite, at least mild atherosclerotic plaque Mild or m inimal coronary narrowings likely 101-400 Definite, at least moderate atherosclerotic plaque Mild coronary ar sara disease highly likely, significant narrowing possible 401 or Higher Extensive atherosclerotic plaque High lik elihood of at least one significant coronary narrowing
== END | disposition home or self-care (01) ==
LOC: RADCTMAIN 15:48
PROVIDERS: ATTEND Internal Medicine
DX: Z13.6 Encounter for screening for cardiovascular disorders (principal)
CPT/HCPCS: 75571

== ENCOUNTER → 2021-03-16 | Outpatient (CLI) | payer MEDICAID, OTHER | END | disposition home or self-care (01) | LOC: LABWHC1 17:34 | PROVIDERS: ATTEND Emergency Medicine | DX: U07.1 COVID-19 (principal) | CPT/HCPCS: 87635 ==

== ENCOUNTER → 2021-12-09 | Outpatient (CLI) | payer MEDICAID ==
[2021-12-09 10:48] LABS: Basophils # (A) 0.08 X 10*3/uL (0.00-0.10); Eosinophils # (A) 0.36 X 10*3/uL (0.04-0.35); Eosinophils % (A) 4.6 %; HCT 47.6 % (39.6-50.0); HGB 15.5 g/dL (13.0-17.0); Immature Grans, Automated 0.5 %; Lymphocytes # (A) 2.21 X 10*3/uL (0.90-5.00); Lymphocytes % (A) 28.3 %; MCH 28.4 pg (27.0-32.0); MCHC 32.6 g/dL (32.0-37.0); MCV 87.2 fL (80.0-97.0); Monocytes # (A) 0.83 X 10*3/uL (0.20-1.00); Monocytes % (A) 10.6 %; NRBC Per 100 WBC 0 /100 WBCS (0.0-0.0); Platelet Count 353 X 10*3/uL (140-440); RBC 5.46 X 10*6/uL (4.40-5.60); RDW 13.2 % (11.5-14.5); WBC 7.82 X 10*3/uL (4.50-10.00)
[2021-12-09 11:01] LABS: Appearance,Urine Clear (Clear); Bilirubin,Urine Negative (Negative); Blood,Urine Negative (Negative); Color,Urine Yellow (Yellow); Ketones,Urine Negative (Negative); Nitrite,Urine Negative (Negative); Specific Gravity,Urine 1.022 (1.001-1.030); Urobilinogen,Urine 0.2 (0.2,1.0)
[2021-12-09 11:20] LABS: ALT 45 U/L (10-49); AST 23 U/L (14-35); African American GFR (CKD) 100.6 (60.0-200.0); Albumin 4.8 g/dL (3.8-4.9); Albumin/Globulin Ratio 2.29 (1.60-3.17); Alkaline Phosphatase 79 U/L (41-126); Blood Urea Nitrogen 14.9 mg/dL (9.0-27.0); Calcium 9.8 mg/dL (8.7-10.3); Chloride 104 mmol/L (96-109); Globulin 2.1 g/dL (1.6-3.3); Glucose 123 mg/dL (70-110); Magnesium 1.9 mg/dL (1.5-2.4); Non-African American GFR(CKD) 86.8 (60.0-200.0); Potassium 4.8 mmol/L (3.5-5.5); Sodium 138 mmol/L (135-145); Total Protein 6.9 g/dL (6.2-8.2)
[2021-12-09 11:21] LABS: Chol/HDL Ratio 3.07 Ratio; LDL Cholesterol,Calculated 74.6 mg/dL (0.0-131.0)
== END | disposition home or self-care (01) ==
LOC: LABWHC1 07:36
PROVIDERS: ATTEND Internal Medicine
DX: I10 Essential (primary) hypertension (principal); E78.2 Mixed hyperlipidemia; E55.9 Vitamin D deficiency, unspecified; R79.89 Other specified abnormal findings of blood chemistry
CPT/HCPCS: 36415; 80053; 80061; 81003; 82306; 83036; 83735; 84153; 84402; 84403; 84439; 84443; 85025

== ENCOUNTER 2022-09-29 06:37 | Day surgery (SDC) | payer MEDICAID ==
[~2022-09-29 06:37] MED LIST: LACTATED RINGERS 1,000 ML IV SCH
[2022-09-29 07:26] VITALS: TEMP 97.1
[2022-09-29] MEDS ORDERED: PROPOFOL 10 MG/ML 20 ML VIAL IV ONE (07:38)
[2022-09-29] MEDS ORDERED: LIDOCAINE 2% INJ 20 MG/ML (2 ML VIAL) ONE (07:38)
--- NOTE | 2022-09-29 07:54 | P.PCN ---
Date of Procedure: 09/29/22 Procedure(s) Performed: BRIEF HISTORY: Patient is a 52-year-old pleasant white scheduled for an elective colonoscopy as a part of screening for colon cancer. PROCEDURE PERFORMED: Colonoscopy with snare polypectomy. PREOPERATIVE DIAGNOSIS: Screening for colon cancer. IV sedation per Anesthesia. PROCEDURE: After informed consent was obtained, the patient, was brought into the endoscopy unit. IV sedation was administered by Anesthesia under continuous monitoring. Digital rectal examination was normal. Initially the Olympus CF-160 flexible video colonoscope was then inserted in the rectum, gradually advanced into the cecum without any difficulty. Careful examination was performed as the scope was gradually being withdrawn. Ileocecal valve and the appendiceal orifice were visualized and appeared normal. Prep was excellent. Mucosa of the cecum, ascending colon, transverse colon, appeared normal. In the descending colon at 50 cm from the anal verge there was a 6 mm polyp that was removed by snare polypectomy and immediately after the cold snare polypectomy there was some oozing identified. Endo Clip was placed and good hemostasis was achieved. Rest of the descending colon, sigmoid colon, and rectum appeared normal. Scattered diverticulosis seen. Retroflexion was performed in the rectum and no lesions were seen. The patient tolerated the procedure well. IMPRESSION: 6 mm descending colon polyp status post snare polypectomy followed by Endo Clip placement Rest of the colon appeared normal Scattered left-sided diverticulosis. RECOMMENDATIONS: Findings of this examination were discussed with the patient as well as his family. He was advised to follow with the biopsy results. If the biopsy shows adenoma he can have a repeat colonoscopy in 5 years.
[2022-09-29 08:27] VITALS: BP 124/86; PULSE 69; RESP 18
== END 2022-09-29 08:33 | disposition home or self-care (01) ==
LOC: ORWHC2ENDO 06:37
PROVIDERS: ATTEND Internal Medicine Gastroenterology
DX: Z12.11 Encounter for screening for malignant neoplasm of colon (principal); D12.4 Benign neoplasm of descending colon; K57.30 Diverticulosis of large intestine without perforation or abscess without bleeding; I10 Essential (primary) hypertension; E78.5 Hyperlipidemia, unspecified; J45.909 Unspecified asthma, uncomplicated; Z87.19 Personal history of other diseases of the digestive system; Z79.811 Long term (current) use of aromatase inhibitors; Z98.890 Other specified postprocedural states
CPT/HCPCS: 88305; 45382; 45385; J2704; J2001

== ENCOUNTER → 2022-12-14 | Outpatient (CLI) | payer MEDICAID ==
--- NOTE | 2022-12-14 16:41 | XR ---
EXAMINATION TYPE: XR chest 2V DATE OF EXAM: 12/14/2022 4:19 PM CLINICAL INDICATION:Male, 52 years old with history of R05.3 CHRONIC COUGH; COMPARISON: Chest radiographs from 11/02/2015 TECHNIQUE: XR chest 2V Frontal and lateral views of the chest. FINDINGS: Lungs/Pleura: There is no evidence of pleural effusion, focal consolidation, or pneumothorax. Pulmonary vascularity: Unremarkable. Heart/mediastinum: Cardiomediastinal silhouette is unremarkable. Musculoskeletal: No acute osseous pathology. IMPRESSION: No acute cardiopulmonary disease/process.
== END | disposition home or self-care (01) ==
LOC: RADXRMAIN 16:09
PROVIDERS: ATTEND Nurse Practitioner Acute Care
DX: R05.3 Chronic cough (principal)
CPT/HCPCS: 71046

== ENCOUNTER → 2023-01-09 | Outpatient (CLI) | payer MEDICAID ==
[2023-01-09 13:39] LABS: Basophils # (A) 0.12 X 10*3/uL (0.00-0.10); Basophils % (A) 1.9 %; Eosinophils % (A) 9.5 %; HCT 48.2 % (39.6-50.0); Lymphocytes # (A) 1.86 X 10*3/uL (0.90-5.00); Lymphocytes % (A) 29.3 %; MCH 29.4 pg (27.0-32.0); MCHC 33.2 g/dL (32.0-37.0); MCV 88.6 FL (80.0-97.0); Mean Platelet Volume 10.2 FL (9.5-12.2); Monocytes # (A) 0.69 X 10*3/uL (0.20-1.00); Monocytes % (A) 10.9 %; NRBC Per 100 WBC 0 X 10*3/uL (0.00-0.01); Neutrophils # (A) 3.06 X 10*3/uL (1.80-7.70); Neutrophils % (A) 48.2 %; Platelet Count 320 X 10*3/uL (140-440); RBC 5.44 X 10*6/uL (4.40-5.60); RDW 13.3 % (11.5-14.5); WBC 6.34 X 10*3/uL (4.50-10.00)
[2023-01-09 14:05] LABS: Chol/HDL Ratio 2.61 Ratio; VLDL Calculation 13.62 mg/dL (5.00-40.00)
[2023-01-09 14:06] LABS: ALT 24 U/L (10-49); AST 17 U/L (14-35); Albumin 4.7 g/dL (3.8-4.9); Albumin/Globulin Ratio 2.47 Ratio (1.60-3.17); Alkaline Phosphatase 74 U/L (41-126); Blood Urea Nitrogen 10.9 mg/dL (9.0-27.0); Carbon Dioxide 24.1 mmol/L (21.6-31.8); Chloride 103 mmol/L (96-109); Globulin 1.9 g/dL (1.6-3.3); Glucose 92 mg/dL (70-110); LDL Cholesterol,Calculated 53.6 mg/dL (0.0-131.0); Magnesium 2.2 mg/dL (1.5-2.4); Potassium 5.1 mmol/L (3.5-5.5); Sodium 138 mmol/L (135-145); Total Bilirubin 0.6 mg/dL (0.3-1.2); Total Protein 6.6 g/dL (6.2-8.2)
[2023-01-09 18:26] LABS: Appearance,Urine Turbid (Clear); Bilirubin,Urine Negative (Negative); Blood,Urine Negative (Negative); Color,Urine Yellow (Yellow); Ketones,Urine 40 (Negative); Nitrite,Urine Negative (Negative); Specific Gravity,Urine 1.021 (1.001-1.030); Urobilinogen,Urine 0.2 E.U./DL
[2023-01-09 18:31] LABS: Bacteria,Urine None Seen (None Seen)
== END | disposition home or self-care (01) ==
LOC: LABWHC1 07:42
PROVIDERS: ATTEND Internal Medicine
DX: Z00.00 Encounter for general adult medical examination without abnormal findings (principal); I10 Essential (primary) hypertension; E55.9 Vitamin D deficiency, unspecified; E78.2 Mixed hyperlipidemia; N40.0 Benign prostatic hyperplasia without lower urinary tract symptoms; R79.89 Other specified abnormal findings of blood chemistry
CPT/HCPCS: 36415; 80053; 80061; 81001; 82306; 83036; 83735; 84153; 84403; 84443; 85025

== ENCOUNTER → 2023-08-22 | Outpatient (CLI) | payer MEDICAID ==
[2023-08-22 15:36] LABS: Appearance,Urine Clear (Clear); Bilirubin,Urine Negative (Negative); Blood,Urine Negative (Negative); Color,Urine Yellow; Glucose,Urine (UA) Negative (Negative); Ketones,Urine Negative (Negative); Leukocyte Esterase,Urine Negative (Negative); Nitrite,Urine Negative (Negative); PH, Urine 5.5 (5.0-8.0); Protein,Urine Negative (Negative); Specific Gravity,Urine 1.022 (1.001-1.035); Urobilinogen,Urine <2.0 mg/dL (<2.0)
[2023-08-22 17:56] LABS: Total Eosinophil Count 467 #EOS/uL (150-300)
[2023-08-22 18:31] LABS: Basophils # (A) 0.09 X 10*3/uL (0.00-0.10); Basophils % (A) 1.1 %; Eosinophils # (A) 0.47 X 10*3/uL (0.04-0.35); Eosinophils % (A) 5.7 %; HCT 47.9 % (39.6-50.0); HGB 15.6 g/dL (13.0-17.0); Lymphocytes # (A) 1.75 X 10*3/uL (0.90-5.00); Lymphocytes % (A) 21.3 %; MCH 29.7 pg (27.0-32.0); MCHC 32.6 g/dL (32.0-37.0); MCV 91.2 FL (80.0-97.0); Mean Platelet Volume 9.8 FL (9.5-12.2); Monocytes # (A) 0.76 X 10*3/uL (0.20-1.00); Monocytes % (A) 9.2 %; NRBC Per 100 WBC 0 X 10*3/uL (0.00-0.01); Neutrophils # (A) 5.12 X 10*3/uL (1.80-7.70); Neutrophils % (A) 62.3 %; Platelet Count 395 X 10*3/uL (140-440); RBC 5.25 X 10*6/uL (4.40-5.60); WBC 8.22 X 10*3/uL (4.50-10.00)
[2023-08-22 18:41] LABS: Erythrocyte Sedimentation Rate 4 mm/Hr (0-20)
[2023-08-22 19:37] LABS: ALT 31 U/L (10-49); AST 20 U/L (14-35); Albumin 4.9 g/dL (3.8-4.9); Albumin/Globulin Ratio 2.33 Ratio (1.60-3.17); Alkaline Phosphatase 86 U/L (41-126); BUN/Creat Ratio 17.67 Ratio (12.00-20.00); Blood Urea Nitrogen 15.9 mg/dL (9.0-27.0); Calcium 10.2 mg/dL (8.7-10.3); Carbon Dioxide 26.4 mmol/L (21.6-31.8); Chloride 104 mmol/L (96-109); Globulin 2.1 g/dL (1.6-3.3); Glucose 98 mg/dL (70-110); Potassium 4.2 mmol/L (3.5-5.5); Sodium 141 mmol/L (135-145); Total Bilirubin 0.5 mg/dL (0.3-1.2)
[2023-08-22 22:19] LABS: Alternaria alternata IgE <0.10 kU/L; Aspergillus fumagatus IgE <0.10 kU/L; Birch IgE <0.10 kU/L; Cat Epith & Dander IgE <0.10 kU/L; Cladosporian herbarum IgE <0.10 kU/L; Cockroach IgE <0.10 kU/L; Dermato. farinae IgE 0.59 kU/L; Dog Dander IgE <0.10 kU/L; Elm IgE <0.10 kU/L; Maple (Box Elder) IgE <0.10 kU/L; Oak IgE <0.10 kU/L; Ragweed,Common IgE <0.10 kU/L; Red Top (Bentgrass) IgE <0.10 kU/L
[2023-08-24 15:08] LABS: C-ANCA <1:20 Titer (<1:20)
[2023-08-24 15:26] LABS: Alt. alternata IgE Class CLASS 0; Alternaria alternata IgE <0.10 kU/L (<0.10); Asperg. fumagatus IgE <0.10 kU/L (<0.10); Asperg. fumagatus IgE Class CLASS 0; Bermuda Grass IgE <0.10 kU/L (<0.10); Birch(Com.Silvr) IgE <0.10 kU/L (<0.10); Birch(Com.Silvr) IgE Class CLASS 0; Cat Epith & Dander IgE <0.10 kU/L (<0.10); Cat Epith & Dander IgE Class CLASS 0; Clad herbarum IgE <0.10 kU/L (<0.10); Clad herbarum IgE Class CLASS 0; Cockroach IgE <0.10 kU/L (<0.10); Cottonwood IgE <0.10 kU/L (<0.10); Dermato. Pteronyssinus Class CLASS 0/1; Dermato. Pteronyssinus IgE 0.33 kU/L (<0.10); Dermato. farinae IgE 0.41 kU/L (<0.10); Dermato. farinae IgE Class CLASS 1; Dog Dander IgE <0.10 kU/L (<0.10); Elm IgE <0.10 kU/L (<0.10); IgE (Allergen) 74.1 IU/mL (<114.0); Maple (Box Elder) IgE <0.10 kU/L (<0.10); Maple (Box Elder) IgE Class CLASS 0; Mountain Cedar IgE <0.10 kU/L (<0.10); Mountain Cedar IgE Class CLASS 0; Mouse Urine IgE Class CLASS 0; Mouse Urine Proteins,IgE <0.10 kU/L (0.10); Nettle IgE <0.10 kU/L (<0.10); Nettle IgE Class CLASS 0; Oak IgE <0.10 kU/L (<0.10); Penicillium chrysogenum IgE <0.10 kU/L (<0.10); Penicillium chrysogenum IgE Cl CLASS 0; Rough Marshelder IgE <0.10 kU/L (<0.10); Rough Marshelder IgE Class CLASS 0; Timothy Grass IgE <0.10 kU/L (<0.10); Timothy Grass IgE Class CLASS 0; White Ash IgE Class CLASS 0
--- NOTE | 2023-08-27 14:30 | CT ---
EXAMINATION TYPE: CT sinus wo con DATE OF EXAM: 08/22/2023 COMPARISON: None HISTORY: 53-year-old male c/o ear aches and pain behind eyes. J32.9 CHRONIC SINUSITIS, UNSPECIFIED FINDINGS: There is extensive lobulated soft tissue density throughout the bilateral maxillary sinuses and filli ng the bilateral ethmoid sinuses and right sphenoid sinus. Mild mucosal thickening left sphenoid sinus. Complete opacification of the bifrontal sinuses with internal hyperdense material. There is reactive osteitis agenesis scattered throughout the paranasal sinus [place]. Lobulated soft tissue objects into the posterior right nasopharynx measuring 1.9 cm, axial image 21. Post surgical change of previous bilateral medial maxillary antrectomies. No air-fluid levels are seen. Slight rightward nasal septal deviation. Orbits and globes appear intact. The TMJs are intact. Mastoid air cells and middle ear cavities are clear. Visualized intrarenal struc tures show no gross abnormality. IMPRESSION: 1. 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 Extensive lobulated soft tissue in the maxillary sinuses and extending into the posterior right nasal cavity. Consider allergic rhinosinusitis with polyposis. 2. Densely opacified bifrontal sinuses. Internal hyperdense material likely inspissated mucus. 3. Slight rightward nasal septal deviation.
--- NOTE | 2023-08-27 14:35 | CT ---
EXAMINATION TYPE: CT soft tissue neck wo con DATE OF EXAM: 08/22/2023 COMPARISON: None HISTORY: 53-year-old male J32.9, sore throat, earaches, pain behind eyes TECHNIQUE: Contiguous axial scanning of the soft tissues of the neck without IV contrast. Coronal and sagittal reconstructions performed. CT DLP: 341.7 mGycm Automated exposure control for dose reduction was used. FINDINGS: Lack of IV contrast limits assessment of the cervical mucosal space, lymph nodes, and vascular struct ures. The paranasal sinuses and facial bones are reported separately. Limitations of noncontrast exam, the nasopharynx and oropharynx appear clear. There is slight asymmetric thickening along the left aryepiglottic fold which may be positional, axia l image 36. Epiglottis and prevertebral soft tissues are satisfactory. Otherwise, glottic and subglottic structures as well as the tracheal column and visualized upper lung s are clear. The thyroid, submandibular, and bilateral parotid glands appear satisfactory. No cervical lymphadenopathy identified. No osseous destructive process. IMPRESSION: 1. PARANASAL SINUSES/FACIAL BONES REPORTED SEPARATELY. PLEASE REFER TO SEPARATE REPORT FROM TODAY FOR DEDICATED FINDINGS. 2. SLIGHT ASYMMETRIC THICKENING LEFT ARYEPIGLOTTIC FOLD MAY BE POSITIONAL. CONSIDER DIRECT VISUALIZAT ION TO EXCLUDE A MUCOSAL LESION HERE. 3. OTHERWISE, NO SPECIFIC ABNORMALITY SEEN ALONG THE SOFT TISSUES OF THE NECK.
== END | disposition home or self-care (01) ==
LOC: RADCTMAIN 14:12
PROVIDERS: ATTEND Internal Medicine Critical Care Medicine
DX: J32.9 Chronic sinusitis, unspecified (principal); J34.2 Deviated nasal septum
CPT/HCPCS: 36415; 70486; 70490; 80053; 81003; 82785; 85008; 85025; 85652; 86003; 86255

== ENCOUNTER → 2024-03-19 | Outpatient (CLI) | payer MEDICAID ==
[2024-03-19 10:40] LABS: Influenza A Detected (Not Detectd); Influenza B Not Detected (Not Detectd); RSV Not Detected (Not Detectd)
== END | disposition home or self-care (01) ==
LOC: LABWHC1 09:24
PROVIDERS: ATTEND Internal Medicine Critical Care Medicine
DX: Z20.822 Contact with and (suspected) exposure to COVID-19 (principal); R05.9 Cough, unspecified; R50.9 Fever, unspecified
CPT/HCPCS: 87636

== ENCOUNTER → 2024-05-12 | Outpatient (CLI) | payer MEDICAID ==
[2024-05-12 11:04] LABS: Appearance,Urine Clear (Clear); Bilirubin,Urine Negative (Negative); Blood,Urine Negative (Negative); Color,Urine Colorless; Glucose,Urine (UA) Negative (Negative); Ketones,Urine Negative (Negative); Leukocyte Esterase,Urine Negative (Negative); Nitrite,Urine Negative (Negative); Protein,Urine Negative (Negative); Specific Gravity,Urine 1.013 (1.001-1.035); Urobilinogen,Urine <2.0 mg/dL (<2.0)
[2024-05-12 15:22] LABS: Basophils # (A) 0.12 X 10*3/uL (0.00-0.10); Basophils % (A) 1.4 %; Eosinophils # (A) 0.48 X 10*3/uL (0.04-0.35); Eosinophils % (A) 5.4 %; HCT 52.5 % (39.6-50.0); HGB 17.2 g/dL (13.0-17.0); Lymphocytes # (A) 1.86 X 10*3/uL (0.90-5.00); Lymphocytes % (A) 21.1 %; MCH 29.1 pg (27.0-32.0); MCHC 32.8 g/dL (32.0-37.0); MCV 88.8 FL (80.0-97.0); Mean Platelet Volume 9.6 FL (9.5-12.2); Monocytes # (A) 0.95 X 10*3/uL (0.20-1.00); Monocytes % (A) 10.8 %; NRBC Per 100 WBC 0 X 10*3/uL (0.00-0.01); Neutrophils # (A) 5.38 X 10*3/uL (1.80-7.70); Platelet Count 345 X 10*3/uL (140-440); RBC 5.91 X 10*6/uL (4.40-5.60); RDW 14.6 % (11.5-14.5); WBC 8.82 X 10*3/uL (4.50-10.00)
[2024-05-12 15:53] LABS: ALT 27 U/L (10-49); AST 22 U/L (14-35); Albumin 4.4 g/dL (3.8-4.9); Alkaline Phosphatase 76 U/L (41-126); Blood Urea Nitrogen 10.4 mg/dL (9.0-27.0); Calcium 9.4 mg/dL (8.7-10.3); Carbon Dioxide 22.7 mmol/L (21.6-31.8); Chloride 106 mmol/L (96-109); Glucose 108 mg/dL (70-110); LDL Cholesterol,Calculated 61.8 mg/dL (0.0-131.0); Magnesium 2.1 mg/dL (1.5-2.4); Potassium 4.8 mmol/L (3.5-5.5); Sodium 139 mmol/L (135-145); Total Bilirubin 0.6 mg/dL (0.3-1.2); Total Protein 6.4 g/dL (6.2-8.2); Uric Acid 5.8 mg/dL (3.7-8.7)
== END | disposition home or self-care (01) ==
LOC: LABWHC1 10:18
PROVIDERS: ATTEND Internal Medicine
DX: Z00.00 Encounter for general adult medical examination without abnormal findings (principal); Z12.5 Encounter for screening for malignant neoplasm of prostate; I10 Essential (primary) hypertension; E55.9 Vitamin D deficiency, unspecified; E78.2 Mixed hyperlipidemia; J45.30 Mild persistent asthma, uncomplicated; N40.0 Benign prostatic hyperplasia without lower urinary tract symptoms; R79.89 Other specified abnormal findings of blood chemistry
CPT/HCPCS: 80061; 80053; 84443; 83735; 84550; 85025; 81003; 84403; 82306; 83036; 36415; G0103

== ENCOUNTER → 2024-05-16 | Outpatient (CLI) | payer MEDICAID | END | disposition home or self-care (01) | LOC: LABWHC1 12:10 | PROVIDERS: ATTEND Internal Medicine | DX: R79.89 Other specified abnormal findings of blood chemistry (principal) | CPT/HCPCS: 36415; 84403 ==